=== PATIENT | male | born 1965 | race American Indian/Alaskan Native ===

== ENCOUNTER 2018-03-17 08:52 | Emergency (ER) | payer SELFPAY ==
[2018-03-17 09:00] VITALS: BP 135/82
[2018-03-17] MEDS ORDERED: PROVENTIL IH ONE (09:08)
[2018-03-17] MEDS ORDERED: ATROVENT IH ONE (09:08)
[2018-03-17] MEDS ORDERED: NACL 0.9% 1000 ML 1,000 ML IV ONE (09:09)
--- NOTE | 2018-03-17 09:11 | Emergency Department Report ---
Blank Doc - Documentation Documentation: Patient is a 53-year-old -[place]ian male with past history of asthma who is presenting with 2-3 days of increased wheezing. Patient states he ran out of his meds for his nebulizer treatment. Patient's had a cough with shortness of breath. Brief physical exam patient is diffuse wheeze in a lung casper. Patient is able to speak in full sentences with some mild difficulty. Patient will undergo neb treatment with IV fluids and Solu-Medrol and magnesium will be reassessed. Ll
[2018-03-17] MEDS ORDERED: MAGNESIUM SULFATE 1 GM in NACL 0.9% 50 ML IV NR (10:00)
[2018-03-17] MEDS ORDERED: XOPENEX IH ONE (10:09)
--- NOTE | 2018-03-17 10:11 | Emergency Department Report ---
ED Asthma HPI - General Chief Complaint: Adult Asthma Stated Complaint: SOB/ASTHMA Time Seen by Provider: 03/17/18 09:08 Source: patient Mode of arrival: Ambulatory Limitations: No Limitations - History of Present Illness Initial Comments: This is 53-year-old male patient here complaining the shortness of breath for a week with wheezing in and congested cough. He said he uses albuterol and Symbicort nebulizer without any relief. Denies any chest pain. Reports nasal congestion and drainage. Denies any nausea or vomiting. Patient is a history of asthma and is also diabetes that is diet controlled. Patient reports that he usually go to [facility] for primary care but he is here today to be evaluated. MD Complaint: "asthma attack", shortness of breath, wheezing Onset/Timin -: week(s) Asthma History: childhood onset Severity: similar to prior Context: recent URI Associated Symptoms: dry cough Treatments Prior to Arrival: inhaled bronchodilator, inhaled steroid - Related Data Current Asthma Therapy: inhaled bronchodilator, inhaled steroid Home Medications Medication Instructions Recorded Confirmed Last Taken ALBUTEROL Inhaler [Proair] 2 puff IH QID PRN 03/17/18 03/17/18 03/17/18 Budesonide/Formoterol Fumarate 2 inh INHALATION BID 03/17/18 03/17/18 03/17/18 [Symbicort 160-4.5 Mcg Inhaler] Previous Rx's Medication Instructions Recorded Last Taken Type ALBUTEROL NEB's [Proventil 0.083% 2.5 mg IH Q6H PRN #1 box 03/17/18 Unknown Rx NEBS] Amoxicillin/K Clav Tab [Augmentin 1 tab PO Q12HR 10 Days #20 tab 03/17/18 Unknown Rx 875 mg] Cetirizine HCl [ZyrTEC] 10 mg PO QDAY 14 Days #14 capsule 03/17/18 Unknown Rx Fluticasone [Flonase] 1 spray NS QDAY 14 Days #1 bottle 03/17/18 Unknown Rx methylPREDNISolone [Medrol Dose 4 mg PO QAM 6 Days #1 pack 03/17/18 Unknown Rx Adam] Allergies Allergy/AdvReac Type Severity Reaction Status Date / Time No Known Allergies Allergy Unverified 03/17/18 08:56 ED Review of Systems ROS: Stated complaint: SOB/ASTHMA Other details as noted in HPI Constitutional: denies: chills, fever Eyes: denies: eye discharge ENT: congestion. denies: ear pain, throat pain Respiratory: SOB with exertion. denies: cough, orthopnea, shortness of breath, SOB at rest, stridor, wheezing Cardiovascular: denies: chest pain, palpitations, edema, syncope Gastrointestinal: diarrhea. denies: abdominal pain, nausea, vomiting Musculoskeletal: denies: back pain, joint swelling, arthralgia Skin: denies: rash, lesions Neurological: denies: headache, weakness ED Past Medical Hx - Past Medical History Previous Medical History?: Yes Hx Diabetes: Yes (no meds) Hx Asthma: Yes - Surgical History Past Surgical History?: No - Family History Family history: hypertension - Social History Smoking Status: Never Smoker Substance Use Type: Prescribed - Medications Home Medications: Home Medications Medication Instructions Recorded Confirmed Last Taken Type ALBUTEROL Inhaler [Proair] 2 puff IH QID PRN 03/17/18 03/17/18 03/17/18 History ALBUTEROL NEB's [Proventil 0.083% 2.5 mg IH Q6H PRN #1 box 03/17/18 Unknown Rx NEBS] Amoxicillin/K Clav Tab [Augmentin 1 tab PO Q12HR 10 Days #20 tab 03/17/18 Unknown Rx 875 mg] Budesonide/Formoterol Fumarate 2 inh INHALATION BID 03/17/18 03/17/18 03/17/18 History [Symbicort 160-4.5 Mcg Inhaler] Cetirizine HCl [ZyrTEC] 10 mg PO QDAY 14 Days #14 capsule 03/17/18 Unknown Rx Fluticasone [Flonase] 1 spray NS QDAY 14 Days #1 bottle 03/17/18 Unknown Rx methylPREDNISolone [Medrol Dose 4 mg PO QAM 6 Days #1 pack 03/17/18 Unknown Rx Adam] ED Physical Exam - General Limitations: No Limitations General appearance: alert, in no apparent distress - Head Head exam: Present: atraumatic, normocephalic, normal inspection - Eye Eye exam: Present: normal appearance, PERRL, EOMI Pupils: Present: normal accommodation - ENT ENT exam: Present: normal exam, normal orophraynx, mucous membranes moist, normal external ear exam, other (bilateral nasal mucosa pale, boggy with clear drainage). Absent: TM's normal bilaterally (bilateral TM congested without any erythema) - Neck Neck exam: Present: normal inspection, tenderness, full ROM. Absent: lymphadenopathy - Respiratory Respiratory exam: Present: normal lung sounds bilaterally (scattered throughout lung casper), wheezes, other (dry cough). Absent: respiratory distress, rales, rhonchi, stridor, chest wall tenderness, accessory muscle use, decreased breath sounds, prolonged expiratory - Cardiovascular Cardiovascular Exam: Present: regular rate, normal rhythm, normal heart sounds. Absent: systolic murmur, diastolic murmur - GI/Abdominal GI/Abdominal exam: Present: soft, normal bowel sounds. Absent: distended, tenderness, guarding, rebound, rigid, organomegaly - Extremities Exam Extremities exam: Present: normal inspection, full ROM, normal capillary refill , other (no clubbing, cyanosis or edema. +2 pulses all extremities). Absent: tenderness, pedal edema, joint swelling, calf tenderness - Neurological Exam Neurological exam: Present: alert, oriented X3, normal gait - Psychiatric Psychiatric exam: Present: normal affect, normal mood - Skin Skin exam: Present: warm, dry, intact, normal color. Absent: rash ED Course Vital Signs 03/17/18 03/17/18 08:56 09:19 Temperature 98 F Pulse Rate 86 Pulse Rate [ 94 H Bilateral] Respiratory 22 Rate Respiratory 16 Rate [Bilateral ] Blood Pressure 135/82 O2 Sat by Pulse 97 Oximetry Vital Signs 03/17/18 03/17/18 03/17/18 08:56 09:19 09:49 Temperature 98 F Pulse Rate 86 Pulse Rate [ 94 H 92 H Bilateral] Respiratory 22 Rate Respiratory 16 16 Rate [Bilateral ] Blood Pressure 135/82 O2 Sat by Pulse 97 Oximetry 03/17/18 03/17/18 03/17/18 10:12 10:18 11:04 Temperature Pulse Rate 98 H 84 Pulse Rate [ 92 H Bilateral] Respiratory 19 18 Rate Respiratory 16 Rate [Bilateral ] Blood Pressure O2 Sat by Pulse 94 94 Oximetry 03/17/18 11:05 Temperature Pulse Rate 84 Pulse Rate [ Bilateral] Respiratory 18 Rate Respiratory Rate [Bilateral ] Blood Pressure O2 Sat by Pulse 98 Oximetry - Reevaluation(s) Reevaluation #1: 03/17/18 10:11 Patient given albuterol 10 mg, Ativan 1 mg nebulizer treatment, he still will wheeze and reports that he is not feeling better. Patient still has magnesium 2 g IV and normal saline 1 L infused in. His O2 sat is 94% on room air. Plan to give 1.25 mg of Xopenex and reevaluate after magnesium completed Reevaluation #2: 03/17/18 11:03 Patient reevaluated after Xopenex 2.5 mg nebulizer and he said he is feeling much better. He has scattered wheezes and upper lung casper. Vital signs are stable. ED Medical Decision Making - Medical Decision Making ED course: This is a 53-year-old male who is here for flareup of asthma. He is on Symbicort and albuterol which he said he used and it's not helping him. Similar symptoms of previous asthma attack. He reports cough, wheezing and some shortness of breath and exertion. He is not having any chest pain. Patient usually goes to [facility] for medical treatment. Patient states that he has an inhaler and he needs nebulizer medication and steroids. Patient was seen and examined by myself and found to have acute asthma exacerbation with upper respiratory tract infection with cough and congestion thus been ongoing for a week. He received albuterol 10 mg, Atrovent 1 mg, Solu- Medrol 125 mg IV, magnesium sulfate 2 g IV and 1 L of normal saline and upright reevaluation he still had some wheezing to his upper lung casper and said he felt a little better but not completely better or back to his normal feelings. I gave him additional Xopenex 2.5 mg nebulizer treatment and upon reevaluation patient lung sounds with minimal scattered wheezes in any city's feeling better. I discussed with him his diagnosis and treatment plan and he voiced understanding. A/P 1. Asthma exacerbation-patient is not better after Solu-Medrol, albuterol, Atrovent, magnesium sulfate, normal saline and Xopenex treatment. We will discharge home on albuterol nebulizer, steroids and he is continues albuterol and Symbicort. We will add Augmentin since he has been having symptoms for over a week. 2: Upper respiratory infection with cough and congestion-we'll discharge home in [facility] and Flonase Educated on medication, diagnosis, treatment plan and need to follow up with [facility] primary care for asthma. Patient voiced understanding and Patient discharged home in stable condition, vital signs are stable he is afebrile and he said he is feeling better. Discharged home a prescription for Medrol Dosepak, albuterol nebulizer, Augmentin ,Zyrtec and Flonase. - Differential Diagnosis bronchitis, asthma exacerbation, URI with cough and congestion Critical care attestation.: If time is entered above; I have spent that time in minutes in the direct care of this critically ill patient, excluding procedure time. ED Disposition Clinical Impression: URI with cough and congestion Acute asthma exacerbation Qualifiers: Asthma severity: moderate Asthma persistence: persistent Qualified Code(s): J45.41 - Moderate persistent asthma with (acute) exacerbation Disposition: TO HOME OR SELFCARE Is pt being admited?: No Does the pt Need Aspirin: No Condition: Stable Instructions: Asthma (ED), Upper Respiratory Infection (ED), Acute Cough (ED) Additional Instructions: Please take Zyrtec and Flonase for nasal congestion Take Augmentin antibiotic as prescribed Please return to emergency room if his symptoms return or worsens. If not, follow up at [facility] in 2-3 days Prescriptions: ALBUTEROL NEB's [Proventil 0.083% NEBS] 2.5 mg IH Q6H PRN #1 box PRN Reason: cough and wheezing Amoxicillin/K Clav Tab [Augmentin 875 mg] 1 tab PO Q12HR 10 Days #20 tab Cetirizine HCl [ZyrTEC] 10 mg PO QDAY 14 Days #14 capsule Fluticasone [Flonase] 1 spray NS QDAY 14 Days #1 bottle methylPREDNISolone [Medrol Dose Adam] 4 mg PO QAM 6 Days #1 pack Referrals: PRIMARY CARE, [Primary Care Provider] - 2-3 Days [facility] [Outside] - 2-3 Days
== END 2018-03-17 11:35 | disposition home or self-care (01) ==
LOC: ED 08:52
DX: J45.41 Moderate persistent asthma with (acute) exacerbation (principal); J06.9 Acute upper respiratory infection, unspecified; E11.9 Type 2 diabetes mellitus without complications
CPT/HCPCS: 94640; 96365; 96375; 99283; J2930; J3475; J7030; 94644

== ENCOUNTER 2018-12-29 12:22 | Emergency (ER) | payer OTHER ==
[2018-12-29] MEDS ORDERED: PROVENTIL IH ONE (13:11)
[2018-12-29] MEDS ORDERED: DELTASONE PO ONE (13:11)
[2018-12-29 13:12] VITALS: BP 129/79
--- NOTE | 2018-12-29 13:12 | Emergency Department Report ---
Chief Complaint: Dyspnea/Respdistress Stated Complaint: SOB Time Seen by Provider: 12/29/18 13:11 - HPI History of Present Illness: wheezing asthma ae rx inhaler mse completed MSE screening note: Focused history and physical exam performed. Due to findings the following was ordered: ED Disposition for MSE Condition: Stable
--- NOTE | 2018-12-29 14:11 | Emergency Department Report ---
Minor Respiratory - HPI Chief Complaint: Dyspnea/Respdistress Stated Complaint: SOB Time Seen by Provider: 12/29/18 13:11 Duration: 2 Days Pain Location: Chest Severity: mild Minor Respiratory: Yes Sore Throat, Yes Able to Tolerate Fluids, Yes Cough, Yes Shortness of Breath, No Rhinorrhea, No Ear Pain, No Sick Contacts, No Hemoptysis, No Chest Pain, No Fever Other History: 54 yo comes with wheezing and sob. He has asthma and has no meds at this time. no cp. no fever. pos sputum- yellow in color. ED Review of Systems ROS: Stated complaint: SOB Other details as noted in HPI Comment: All other systems reviewed and negative ED Past Medical Hx - Past Medical History Previous Medical History?: Yes Hx Diabetes: Yes (no meds) Hx Asthma: Yes - Surgical History Past Surgical History?: No - Social History Smoking Status: Never Smoker Substance Use Type: None - Medications Home Medications: Home Medications Medication Instructions Recorded Confirmed Last Taken Type Amoxicillin/K Clav Tab [Augmentin 1 tab PO Q12HR 10 Days #20 tab 03/17/18 Unknown Rx 875 mg] Cetirizine HCl [ZyrTEC] 10 mg PO QDAY 14 Days #14 capsule 03/17/18 Unknown Rx Fluticasone [Flonase] 1 spray NS QDAY 14 Days #1 bottle 03/17/18 Unknown Rx methylPREDNISolone [Medrol Dose 4 mg PO QAM 6 Days #1 pack 03/17/18 Unknown Rx Adam] Albuterol Sulfate [Ventolin HFA] 2 puff IH Q4H PRN #1 hfa.aer.ad 12/29/18 Unknown Rx Amoxicillin 500 mg PO BID #20 capsule 12/29/18 Unknown Rx Cetirizine HCl [ZyrTEC] 10 mg PO DAILY #30 capsule 12/29/18 Unknown Rx Fluticasone [Flonase] 1 spray NS QDAY #1 bottle 12/29/18 Unknown Rx predniSONE [Deltasone] 20 mg PO DAILY #5 tablet 12/29/18 Unknown Rx ALBUTEROL Inhaler (OR & NICU) 2 puff IH QID PRN #1 inha 01/04/19 Unknown Rx [ProAir HFA Inhaler] ALBUTEROL NEB's [Proventil 0.083% 2.5 mg IH Q6H PRN #1 box 01/04/19 Unknown Rx NEBS] Budesonide/Formoterol Fumarate 2 inh INHALATION BID #1 hfa.aer.ad 01/04/19 Unknown Rx [Symbicort 160-4.5 Mcg Inhaler] Prednisone [predniSONE 10 mg 10 mg PO .TAPER #1 tab.ds.pk 01/04/19 Unknown Rx (6-Day Pack, 21 Tabs)] Minor Respiratory Exam - Exam General: Vital signs noted. No distress. Alert and acting appropriately. HEENT: Yes Pharyngeal Erythema, Yes Moist Mucous Membranes, Yes Rhinorrhea, No Pharyngeal Exudates, No Conjuctival Injection, No Frontal Tenderness, No Maxillary Tenderness Ear: Neither TM Bulge, Neither TM Erythema, Neither EAC Pain, Neither EAC Discharge Neck: Yes Supple, No Adenopathy Lungs: Yes Good Air Exchange, Yes Wheezes, Yes Cough, No Ronchi, No Stridor, No Labored Respirations, No Retractions, No Use of Accessory Muscles, No Other Abnormal Lung Sounds Heart: Yes Regular, No Murmur Abdomen: Yes Normal Bowel Sounds, No Tenderness, No Peritoneal Signs Skin: No Rash, No Edema Neurologic: Alert and oriented, no deficits. Musculoskeletal: Unremarkable. ED Course Vital Signs 12/29/18 12/29/18 13:11 13:28 Temperature 98.1 F Pulse Rate 69 Pulse Rate [ 73 Bilateral] Respiratory 20 Rate Respiratory 16 Rate [Bilateral ] Blood Pressure 129/79 O2 Sat by Pulse 97 Oximetry ED Medical Decision Making - Medical Decision Making Vital Signs 12/29/18 12/29/18 13:11 13:28 Temperature 98.1 F Pulse Rate 69 Pulse Rate [ 73 Bilateral] Respiratory 20 Rate Respiratory 16 Rate [Bilateral ] Blood Pressure 129/79 O2 Sat by Pulse 97 Oximetry Medicated in ER and dc home with rx and follow up. VSS ambulatory taking po non toxic Critical care attestation.: If time is entered above; I have spent that time in minutes in the direct care of this critically ill patient, excluding procedure time. ED Disposition Clinical Impression: Asthma with acute exacerbation, URTI (acute upper respiratory infection) Disposition: DC-01 TO HOME OR SELFCARE Is pt being admited?: No Does the pt Need Aspirin: No Condition: Stable Instructions: Asthma (ED) Additional Instructions: REST HYDRATE WELL WITH WATER MEDS ORDERED FOLLOW UP PCP REFERRAL BELOW Prescriptions: Amoxicillin 500 mg PO BID #20 capsule predniSONE [Deltasone] 20 mg PO DAILY #5 tablet Fluticasone [Flonase] 1 spray NS QDAY #1 bottle Albuterol Sulfate [Ventolin HFA] 2 puff IH Q4H PRN #1 hfa.aer.ad PRN Reason: Shortness Of Breath Cetirizine HCl [ZyrTEC] 10 mg PO DAILY #30 capsule Referrals: [facility] [Outside] - 3-5 Days Time of Disposition: 14:30
== END 2018-12-29 14:20 | disposition home or self-care (01) ==
LOC: ED 12:22
DX: J45.901 Unspecified asthma with (acute) exacerbation (principal); J06.9 Acute upper respiratory infection, unspecified; E11.9 Type 2 diabetes mellitus without complications
CPT/HCPCS: 94640; 99282; J7512

== ENCOUNTER 2019-01-04 10:42 | Emergency (ER) | payer SELFPAY ==
[2019-01-04] MEDS ORDERED: DECADRON IM ONE (11:18)
[2019-01-04] MEDS ORDERED: PROVENTIL IH ONE ×2 (11:18→13:17)
[2019-01-04] MEDS ORDERED: ATROVENT IH ONE (11:18)
--- NOTE | 2019-01-04 11:18 | Emergency Department Report ---
Chief Complaint: Adult Asthma Stated Complaint: SOB/ASTHMA Time Seen by Provider: 01/04/19 11:16 - HPI History of Present Illness: pt with hx of asthma has SOB and wheezing states he only uses albuterol inhaler no cough no fever no sore throat no other PMHx MSE screening note: Focused history and physical exam performed. Due to findings the following was ordered: CXR, steroids, neb tx ED Disposition for MSE Condition: Stable
--- NOTE | 2019-01-04 11:52 | Emergency Department Report ---
HPI - General Chief Complaint: Adult Asthma Time Seen by Provider: 01/04/19 11:16 - HPI HPI: 53-year-old -[place] male presents to the emergency department with a 2 day history of some shortness of breath, wheezing. He has a history of asthma and has been using his albuterol inhaler and nebulizer at home without much relief. He denies any fever, significant cough, chest pain, nausea, vomiting or diaphoresis. He denies any tobacco use. No recent travel or sick contacts at home. He does not have a primary care physician. ED Past Medical Hx - Past Medical History Hx Diabetes: Yes (no meds) Hx Asthma: Yes - Surgical History Past Surgical History?: No - Social History Smoking Status: Never Smoker Substance Use Type: None - Medications Home Medications: Home Medications Medication Instructions Recorded Confirmed Last Taken Type Amoxicillin/K Clav Tab [Augmentin 1 tab PO Q12HR 10 Days #20 tab 03/17/18 Unknown Rx 875 mg] Cetirizine HCl [ZyrTEC] 10 mg PO QDAY 14 Days #14 capsule 03/17/18 Unknown Rx Fluticasone [Flonase] 1 spray NS QDAY 14 Days #1 bottle 03/17/18 Unknown Rx methylPREDNISolone [Medrol Dose 4 mg PO QAM 6 Days #1 pack 03/17/18 Unknown Rx Adam] Albuterol Sulfate [Ventolin HFA] 2 puff IH Q4H PRN #1 hfa.aer.ad 12/29/18 Unknown Rx Amoxicillin 500 mg PO BID #20 capsule 12/29/18 Unknown Rx Cetirizine HCl [ZyrTEC] 10 mg PO DAILY #30 capsule 12/29/18 Unknown Rx Fluticasone [Flonase] 1 spray NS QDAY #1 bottle 12/29/18 Unknown Rx predniSONE [Deltasone] 20 mg PO DAILY #5 tablet 12/29/18 Unknown Rx ALBUTEROL Inhaler (OR & NICU) 2 puff IH QID PRN #1 inha 01/04/19 Unknown Rx [ProAir HFA Inhaler] ALBUTEROL NEB's [Proventil 0.083% 2.5 mg IH Q6H PRN #1 box 01/04/19 Unknown Rx NEBS] Budesonide/Formoterol Fumarate 2 inh INHALATION BID #1 hfa.aer.ad 01/04/19 Unknown Rx [Symbicort 160-4.5 Mcg Inhaler] Prednisone [predniSONE 10 mg 10 mg PO .TAPER #1 tab.ds.pk 01/04/19 Unknown Rx (6-Day Pack, 21 Tabs)] ED Review of Systems ROS: Stated complaint: SOB/ASTHMA Other details as noted in HPI Comment: All other systems reviewed and negative Constitutional: denies: chills, fever Eyes: denies: eye pain, vision change ENT: denies: ear pain, throat pain Respiratory: shortness of breath, wheezing Cardiovascular: denies: chest pain, palpitations Gastrointestinal: denies: abdominal pain, vomiting Genitourinary: denies: dysuria, discharge Musculoskeletal: denies: back pain, arthralgia Skin: denies: rash, lesions Neurological: denies: headache, weakness Physical Exam - Physical Exam Vital Signs: Vital Signs 01/04/19 01/04/19 11:16 11:31 Temperature 97.8 F Pulse Rate 99 H Pulse Rate [ 87 Anterior Bilateral Throughout] Respiratory 18 Rate Respiratory 18 Rate [Anterior Bilateral Throughout] Blood Pressure 134/98 O2 Sat by Pulse 97 Oximetry Physical Exam: GENERAL: The patient is well-developed well-nourished. HENT: Normocephalic. Atraumatic. Patient has moist mucous membranes. EYES: Extraocular motions are intact. Pupils equal reactive to light bilaterally. NECK: Supple. Trachea is midline. CHEST/LUNGS: Moderate wheezing throughout the chest. Mild tachypnea but no accessory muscle use. There is no respiratory distress noted. HEART/CARDIOVASCULAR: Regular. There is no tachycardia. There is no murmur. ABDOMEN: Abdomen is soft, nontender. Patient has normal bowel sounds. There is no abdominal distention. SKIN: Skin is warm and dry. NEURO: The patient is awake, alert, and oriented. The patient is cooperative. The patient has no focal neurologic deficits. The patient has normal speech. MUSCULOSKELETAL: There is no tenderness or deformity. There is no evidence of acute injury. ED Course Vital Signs 01/04/19 01/04/19 11:16 11:31 Temperature 97.8 F Pulse Rate 99 H Pulse Rate [ 87 Anterior Bilateral Throughout] Respiratory 18 Rate Respiratory 18 Rate [Anterior Bilateral Throughout] Blood Pressure 134/98 O2 Sat by Pulse 97 Oximetry ED Medical Decision Making - Radiology Data Radiology results: image reviewed interpreted by me: Chest x-ray does not show any acute process. There are no pleural effusions, obvious pneumonia and there is no pneumothorax. - Medical Decision Making Patient presents to the emergency department with some wheezing and shortness of breath. Chest x-ray does not show any focal consolidation, pneumothorax, pneumonia, pleural effusions, or any other acute process. He has moderate bronchospasm but does not appear in any respiratory distress. He was given a dose of steroids and to different long breathing treatments. Upon reevaluation he is feeling improved. The patient was able to ambulate without any exertional dyspnea or increased work of breathing. Vital signs stable throughout his ED course included being afebrile. He says that he has good follow-up for primary care. He will be given a refill of his Symbicort, albuterol, and will be placed on a Medrol Dosepak. He will return to the ER with any worsening of his symptoms or any acute distress. - Differential Diagnosis asthma, COPD, pneumonia, CHF Critical Care Time: No Critical care attestation.: If time is entered above; I have spent that time in minutes in the direct care of this critically ill patient, excluding procedure time. ED Disposition Clinical Impression: Asthma with acute exacerbation Qualifiers: Asthma severity: unspecified severity Asthma persistence: unspecified Qualified Code(s): J45.901 - Unspecified asthma with (acute) exacerbation Disposition: DC-01 TO HOME OR SELFCARE Is pt being admited?: No Condition: Stable Instructions: Asthma (ED) Additional Instructions: Please follow-up with your primary care physician in the next few days. Return to the emergency Department with any worsening of your symptoms or any acute distress. Prescriptions: Prednisone [predniSONE 10 mg (6-Day Pack, 21 Tabs)] 10 mg PO .TAPER #1 tab.ds.pk ALBUTEROL Inhaler (OR & NICU) [ProAir HFA Inhaler] 2 puff IH QID PRN #1 inha PRN Reason: Shortness Of Breath ALBUTEROL NEB's [Proventil 0.083% NEBS] 2.5 mg IH Q6H PRN #1 box PRN Reason: cough and wheezing Budesonide/Formoterol Fumarate [Symbicort 160-4.5 Mcg Inhaler] 2 inh INHALATION BID #1 hfa.aer.ad Referrals: NGA BECKHAM MD [Primary Care Provider] - 3-5 Days Forms: Work/School Release Form(ED) Time of Disposition: 16:35
--- NOTE | 2019-01-04 12:10 | XRay Report ---
CHEST TWO VIEWS: 01/04/19 12:05 CLINICAL: Shortest of breath and wheezing. COMPARISON: 04/16/10 FINDINGS: Normal heart and pulmonary vasculature. The lungs are normally expanded and clear. The bones and soft tissues are normal. IMPRESSION: Normal chest.
[2019-01-04 15:08] VITALS: BP 141/84
== END 2019-01-04 15:07 | disposition home or self-care (01) ==
LOC: ED 10:42
DX: J45.901 Unspecified asthma with (acute) exacerbation (principal); E11.9 Type 2 diabetes mellitus without complications
CPT/HCPCS: 71046; 94640; 96372; 99283; J1100

== ENCOUNTER 2019-11-30 12:09 | Emergency (ER) | payer SELFPAY ==
[2019-11-30 12:21] VITALS: BP 154/92
[2019-11-30] MEDS ORDERED: IPRATROPIUM/ALBUTEROL SULFATE 3 ML AMPUL.NEB IH ONE (12:50)
[2019-11-30] MEDS ORDERED: predniSONE 20 MG TAB PO ONE (12:53)
--- NOTE | 2019-11-30 12:56 | Emergency Department Report ---
ED General Adult HPI - General Chief complaint: Upper Respiratory Infection Stated complaint: ASTHMA, CONGESTION Time Seen by Provider: 11/30/19 12:44 Source: patient Mode of arrival: Ambulatory Limitations: No Limitations - History of Present Illness Initial comments: 54 yo male states that he is experiencing chest congestion and SOB x 3 days. he further states that he has been using a KITA inhaler with no relief. Severity scale (0 -10): 0 - Related Data Previous Rx's Medication Instructions Recorded Last Taken Type Amoxicillin/K Clav Tab [Augmentin 1 tab PO Q12HR 10 Days #20 tab 03/17/18 Unknown Rx 875 mg] Cetirizine HCl [ZyrTEC] 10 mg PO QDAY 14 Days #14 capsule 03/17/18 Unknown Rx Fluticasone [Flonase] 1 spray NS QDAY 14 Days #1 bottle 03/17/18 Unknown Rx methylPREDNISolone [Medrol Dose 4 mg PO QAM 6 Days #1 pack 03/17/18 Unknown Rx Adam] Albuterol Sulfate [Ventolin HFA] 2 puff IH Q4H PRN #1 hfa.aer.ad 12/29/18 Unknown Rx Amoxicillin 500 mg PO BID #20 capsule 12/29/18 Unknown Rx Cetirizine HCl [ZyrTEC] 10 mg PO DAILY #30 capsule 12/29/18 Unknown Rx Fluticasone [Flonase] 1 spray NS QDAY #1 bottle 12/29/18 Unknown Rx predniSONE [Deltasone] 20 mg PO DAILY #5 tablet 12/29/18 Unknown Rx ALBUTEROL NEB's [Proventil 0.083% 2.5 mg IH Q6H PRN #1 box 01/04/19 Unknown Rx NEBS] Albuterol INH(or & Nicu Only) 2 puff IH QID PRN #1 inha 01/04/19 Unknown Rx [ProAir HFA Inhaler] Budesonide/Formoterol Fumarate 2 inh INHALATION BID #1 hfa.aer.ad 01/04/19 Unknown Rx [Symbicort 160-4.5 Mcg Inhaler] Prednisone [predniSONE 10 mg 10 mg PO .TAPER #1 tab.ds.pk 01/04/19 Unknown Rx (6-Day Pack, 21 Tabs)] Allergies Allergy/AdvReac Type Severity Reaction Status Date / Time No Known Allergies Allergy Verified 01/04/19 10:44 ED Review of Systems ROS: Stated complaint: ASTHMA, CONGESTION Other details as noted in HPI ED Past Medical Hx - Past Medical History Hx Diabetes: Yes (no meds) Hx Asthma: Yes - Surgical History Past Surgical History?: No - Social History Smoking Status: Never Smoker Substance Use Type: None - Medications Home Medications: Home Medications Medication Instructions Recorded Confirmed Last Taken Type Amoxicillin/K Clav Tab [Augmentin 1 tab PO Q12HR 10 Days #20 tab 03/17/18 Unknown Rx 875 mg] Cetirizine HCl [ZyrTEC] 10 mg PO QDAY 14 Days #14 capsule 03/17/18 Unknown Rx Fluticasone [Flonase] 1 spray NS QDAY 14 Days #1 bottle 03/17/18 Unknown Rx methylPREDNISolone [Medrol Dose 4 mg PO QAM 6 Days #1 pack 03/17/18 Unknown Rx Adam] Albuterol Sulfate [Ventolin HFA] 2 puff IH Q4H PRN #1 hfa.aer.ad 12/29/18 Unknown Rx Amoxicillin 500 mg PO BID #20 capsule 12/29/18 Unknown Rx Cetirizine HCl [ZyrTEC] 10 mg PO DAILY #30 capsule 12/29/18 Unknown Rx Fluticasone [Flonase] 1 spray NS QDAY #1 bottle 12/29/18 Unknown Rx predniSONE [Deltasone] 20 mg PO DAILY #5 tablet 12/29/18 Unknown Rx ALBUTEROL NEB's [Proventil 0.083% 2.5 mg IH Q6H PRN #1 box 01/04/19 Unknown Rx NEBS] Albuterol INH(or & Nicu Only) 2 puff IH QID PRN #1 inha 01/04/19 Unknown Rx [ProAir HFA Inhaler] Budesonide/Formoterol Fumarate 2 inh INHALATION BID #1 hfa.aer.ad 01/04/19 Unknown Rx [Symbicort 160-4.5 Mcg Inhaler] Prednisone [predniSONE 10 mg 10 mg PO .TAPER #1 tab.ds.pk 01/04/19 Unknown Rx (6-Day Pack, 21 Tabs)] ED Physical Exam - General Limitations: No Limitations ED Course Vital Signs 11/30/19 12:20 Temperature 98.2 F Pulse Rate 75 Respiratory 16 Rate Blood Pressure 154/92 [Left] O2 Sat by Pulse 99 Oximetry Critical care attestation.: If time is entered above; I have spent that time in minutes in the direct care of this critically ill patient, excluding procedure time. ED Disposition Condition: Stable
[2019-11-30] MEDS ORDERED: predniSONE 20 MG TAB PO STA (13:11)
--- NOTE | 2019-11-30 13:20 | Emergency Department Report ---
ED Asthma HPI - General Chief Complaint: Upper Respiratory Infection Stated Complaint: ASTHMA, CONGESTION Time Seen by Provider: 11/30/19 12:44 Source: patient Mode of arrival: Ambulatory Limitations: No Limitations - History of Present Illness Initial Comments: 54-year-old [place] male presents emerge department planing of a 2-day history of progressively worsening wheezing coughing with mucus production. He said he has a known history of asthma and has been utilizing his home medications with no improvement. Reports some vague chest aches off and on reports no hemoptysis no hematemesis no hematochezia. Reports no fever, chills, sweats no nausea or vomiting. States that he has had no no tinnitus no headache no documented fever. He has been taking his medications as prescribed with minimal response. MD Complaint: shortness of breath, wheezing -: Sudden, days(s) (2) Severity: mild, moderate Associated Symptoms: none Treatments Prior to Arrival: inhaled bronchodilator - Related Data Previous Rx's Medication Instructions Recorded Last Taken Type Amoxicillin/K Clav Tab [Augmentin 1 tab PO Q12HR 10 Days #20 tab 03/17/18 Unknown Rx 875 mg] Cetirizine HCl [ZyrTEC] 10 mg PO QDAY 14 Days #14 capsule 03/17/18 Unknown Rx Fluticasone [Flonase] 1 spray NS QDAY 14 Days #1 bottle 03/17/18 Unknown Rx methylPREDNISolone [Medrol Dose 4 mg PO QAM 6 Days #1 pack 03/17/18 Unknown Rx Adam] Albuterol Sulfate [Ventolin HFA] 2 puff IH Q4H PRN #1 hfa.aer.ad 12/29/18 Unknown Rx Amoxicillin 500 mg PO BID #20 capsule 12/29/18 Unknown Rx Cetirizine HCl [ZyrTEC] 10 mg PO DAILY #30 capsule 12/29/18 Unknown Rx Fluticasone [Flonase] 1 spray NS QDAY #1 bottle 12/29/18 Unknown Rx predniSONE [Deltasone] 20 mg PO DAILY #5 tablet 12/29/18 Unknown Rx ALBUTEROL NEB's [Proventil 0.083% 2.5 mg IH Q6H PRN #1 box 01/04/19 Unknown Rx NEBS] Albuterol INH(or & Nicu Only) 2 puff IH QID PRN #1 inha 01/04/19 Unknown Rx [ProAir HFA Inhaler] Budesonide/Formoterol Fumarate 2 inh INHALATION BID #1 hfa.aer.ad 01/04/19 Unknown Rx [Symbicort 160-4.5 Mcg Inhaler] Prednisone [predniSONE 10 mg 10 mg PO .TAPER #1 tab.ds.pk 01/04/19 Unknown Rx (6-Day Pack, 21 Tabs)] Montelukast [Singulair] 10 mg PO QPM #14 tablet 11/30/19 Unknown Rx predniSONE [Deltasone] 50 mg PO QDAY #5 tab 11/30/19 Unknown Rx Allergies Allergy/AdvReac Type Severity Reaction Status Date / Time No Known Allergies Allergy Verified 01/04/19 10:44 ED Review of Systems ROS: Stated complaint: ASTHMA, CONGESTION Other details as noted in HPI Comment: All other systems reviewed and negative ED Past Medical Hx - Past Medical History Hx Diabetes: Yes (no meds) Hx Asthma: Yes - Surgical History Past Surgical History?: No - Social History Smoking Status: Never Smoker Substance Use Type: None - Medications Home Medications: Home Medications Medication Instructions Recorded Confirmed Last Taken Type Amoxicillin/K Clav Tab [Augmentin 1 tab PO Q12HR 10 Days #20 tab 03/17/18 Unknown Rx 875 mg] Cetirizine HCl [ZyrTEC] 10 mg PO QDAY 14 Days #14 capsule 03/17/18 Unknown Rx Fluticasone [Flonase] 1 spray NS QDAY 14 Days #1 bottle 03/17/18 Unknown Rx methylPREDNISolone [Medrol Dose 4 mg PO QAM 6 Days #1 pack 03/17/18 Unknown Rx Adam] Albuterol Sulfate [Ventolin HFA] 2 puff IH Q4H PRN #1 hfa.aer.ad 12/29/18 Unknown Rx Amoxicillin 500 mg PO BID #20 capsule 12/29/18 Unknown Rx Cetirizine HCl [ZyrTEC] 10 mg PO DAILY #30 capsule 12/29/18 Unknown Rx Fluticasone [Flonase] 1 spray NS QDAY #1 bottle 12/29/18 Unknown Rx predniSONE [Deltasone] 20 mg PO DAILY #5 tablet 12/29/18 Unknown Rx ALBUTEROL NEB's [Proventil 0.083% 2.5 mg IH Q6H PRN #1 box 04/29/19 Unknown Rx NEBS] Albuterol INH(or & Nicu Only) 2 puff IH QID PRN #1 inha 01/04/19 Unknown Rx [ProAir HFA Inhaler] Budesonide/Formoterol Fumarate 2 inh INHALATION BID #1 hfa.aer.ad 01/04/19 Unknown Rx [Symbicort 160-4.5 Mcg Inhaler] Prednisone [predniSONE 10 mg 10 mg PO .TAPER #1 tab.ds.pk 01/04/19 Unknown Rx (6-Day Pack, 21 Tabs)] Montelukast [Singulair] 10 mg PO QPM #14 tablet 11/30/19 Unknown Rx predniSONE [Deltasone] 50 mg PO QDAY #5 tab 11/30/19 Unknown Rx ED Physical Exam - General Limitations: No Limitations General appearance: alert, in no apparent distress - Head Head exam: Present: atraumatic, normocephalic - Eye Eye exam: Present: normal appearance - ENT ENT exam: Present: mucous membranes moist - Neck Neck exam: Present: normal inspection - Respiratory Respiratory exam: Present: normal lung sounds bilaterally, wheezes, other (Good air movement there is some end expiratory wheezing appears to be equal). Absent: respiratory distress, rales, rhonchi, decreased breath sounds, prolonged expiratory - Cardiovascular Cardiovascular Exam: Present: regular rate, normal rhythm. Absent: systolic murmur, diastolic murmur, rubs, gallop - GI/Abdominal GI/Abdominal exam: Present: soft, normal bowel sounds - Rectal Rectal exam: Present: deferred - Extremities Exam Extremities exam: Present: normal inspection - Back Exam Back exam: Present: normal inspection - Neurological Exam Neurological exam: Present: alert, oriented X3 - Psychiatric Psychiatric exam: Present: normal affect, normal mood - Skin Skin exam: Present: warm, dry, intact, normal color. Absent: rash ED Course Vital Signs 11/30/19 12:20 Temperature 98.2 F Pulse Rate 75 Respiratory 16 Rate Blood Pressure 154/92 [Left] O2 Sat by Pulse 99 Oximetry ED Medical Decision Making - Medical Decision Making This patient presents with acute cough, most consistent with asthma exacerbation. Differential diagnosis includes hyperreactive airways, pneumonia, bronchitis. Presentation not consistent with acute bacterial pneumonia, influenza, asthma, transient airway hyperresponsiveness. Presentation not consistent with chronic causes of cough (including GERD, asthma, postnasal disch arge, medication side effect, CHF, lung cancer or mass). Plan: Deferred CXR, supportive care, reassess Critical care attestation.: If time is entered above; I have spent that time in minutes in the direct care of this critically ill patient, excluding procedure time. ED Disposition Clinical Impression: Asthma Disposition: DC-01 TO HOME OR SELFCARE Is pt being admited?: No Does the pt Need Aspirin: No Condition: Stable Instructions: Asthma (ED), Reactive Airways Disease (ED) Referrals: PRIMARY CARE, [Primary Care Provider] - 3-5 Days [facility] [Provider Group] - 3-5 Days
--- NOTE | 2019-11-30 16:35 | Event Note ---
ED Screening Note Date of service: 11/30/19 Time: 12:44 ED Screening Note: This initial assessment/diagnostic orders/clinical plan/treatment(s) is/are subject to change based on patients health status, clinical progression and re- assessment by fellow clinical providers in the ED. Further treatment and workup at subsequent clinical providers discretion. Patient/guardian urged not to elope from the ED as their condition may be serious if not clinically assessed and managed. Initial orders include: 54 yo male states that he is experiencing chest congestion and SOB x 3 days. he further states that he has been using a KITA inhaler with no relief.
== END 2019-11-30 13:57 | disposition home or self-care (01) ==
LOC: ED 12:09
DX: J45.909 Unspecified asthma, uncomplicated (principal); E11.9 Type 2 diabetes mellitus without complications; Z79.899 Other long term (current) drug therapy
CPT/HCPCS: 94640; 99282; J7512; 94644

== ENCOUNTER 2020-03-03 19:28 | Emergency (ER) | payer SELFPAY ==
[2020-03-03 19:35] VITALS: BP 132/94
[2020-03-03] MEDS ORDERED: IPRATROPIUM 0.02% NEBU 2.5 ML IH ONE (19:49)
[2020-03-03] MEDS ORDERED: dexAMETHasone 20 MG/5 ML VIAL IM ONE (19:49)
[2020-03-03] MEDS ORDERED: ALBUTEROL 2.5 MG/3 ML NEBU IH ONE (19:49)
--- NOTE | 2020-03-03 19:55 | Event Note ---
ED Screening Note Date of service: 03/03/20 Time: 19:47 ED Screening Note: 55 y/o male comes in for sob, coughing and little chest tightness time few days. Using his inhaler pump with no relief. This initial assessment/diagnostic orders/clinical plan/treatment(s) is/are subject to change based on patients health status, clinical progression and re- assessment by fellow clinical providers in the ED. Further treatment and workup at subsequent clinical providers discretion. Patient/guardian urged not to elope from the ED as their condition may be serious if not clinically assessed and managed. Initial orders include:
--- NOTE | 2020-03-03 20:22 | Emergency Department Report ---
ED Asthma HPI - General Chief Complaint: Adult Asthma Stated Complaint: ASTHMA Time Seen by Provider: 03/03/20 20:21 Source: patient Mode of arrival: Ambulatory Limitations: No Limitations - History of Present Illness Initial Comments: 55-year male with a past medical history of asthma and diabetes without previous history of intubations presents to the hospital stating he needs prednisone and a breathing treatment. He has had shortness of breath and wheezing for the past 2 days. Dry cough without fever. Using neb treatments at home without impro vement. Denies coronavirus exposure - Related Data Previous Rx's Medication Instructions Recorded Last Taken Type Amoxicillin/K Clav Tab [Augmentin 1 tab PO Q12HR 10 Days #20 tab 03/17/18 Unknown Rx 875 mg] Cetirizine HCl [ZyrTEC] 10 mg PO QDAY 14 Days #14 capsule 03/17/18 Unknown Rx Fluticasone [Flonase] 1 spray NS QDAY 14 Days #1 bottle 03/17/18 Unknown Rx methylPREDNISolone [Medrol Dose 4 mg PO QAM 6 Days #1 pack 03/17/18 Unknown Rx Adam] Albuterol Sulfate [Ventolin HFA] 2 puff IH Q4H PRN #1 hfa.aer.ad 12/29/18 Unknown Rx Amoxicillin 500 mg PO BID #20 capsule 12/29/18 Unknown Rx Cetirizine HCl [ZyrTEC] 10 mg PO DAILY #30 capsule 12/29/18 Unknown Rx Fluticasone [Flonase] 1 spray NS QDAY #1 bottle 12/29/18 Unknown Rx predniSONE [Deltasone] 20 mg PO DAILY #5 tablet 12/29/18 Unknown Rx Budesonide/Formoterol Fumarate 2 inh INHALATION BID #1 hfa.aer.ad 01/04/19 Unknown Rx [Symbicort 160-4.5 Mcg Inhaler] Montelukast [Singulair] 10 mg PO QPM #14 tablet 11/30/19 Unknown Rx predniSONE [Deltasone] 50 mg PO QDAY #5 tab 11/30/19 Unknown Rx ALBUTEROL NEB's [Proventil 0.083% 2.5 mg IH Q6H PRN #1 box 03/03/20 Unknown Rx NEBS] Albuterol INH(or & Nicu Only) 2 puff IH QID PRN #1 inha 03/03/20 Unknown Rx [ProAir HFA Inhaler] Prednisone [predniSONE 10 mg 10 mg PO .TAPER #1 tab.ds.pk 03/03/20 Unknown Rx (6-Day Pack, 21 Tabs)] Allergies Allergy/AdvReac Type Severity Reaction Status Date / Time No Known Allergies Allergy Verified 01/04/19 10:44 ED Review of Systems ROS: Stated complaint: ASTHMA Other details as noted in HPI Comment: All other systems reviewed and negative ED Past Medical Hx - Past Medical History Previous Medical History?: Yes Hx Diabetes: Yes (no meds) Hx Asthma: Yes - Surgical History Past Surgical History?: No - Social History Smoking Status: Former Smoker Substance Use Type: None - Medications Home Medications: Home Medications Medication Instructions Recorded Confirmed Last Taken Type Amoxicillin/K Clav Tab [Augmentin 1 tab PO Q12HR 10 Days #20 tab 03/17/18 Unknown Rx 875 mg] Cetirizine HCl [ZyrTEC] 10 mg PO QDAY 14 Days #14 capsule 03/17/18 Unknown Rx Fluticasone [Flonase] 1 spray NS QDAY 14 Days #1 bottle 03/17/18 Unknown Rx methylPREDNISolone [Medrol Dose 4 mg PO QAM 6 Days #1 pack 03/17/18 Unknown Rx Adam] Albuterol Sulfate [Ventolin HFA] 2 puff IH Q4H PRN #1 hfa.aer.ad 12/29/18 Unknown Rx Amoxicillin 500 mg PO BID #20 capsule 12/29/18 Unknown Rx Cetirizine HCl [ZyrTEC] 10 mg PO DAILY #30 capsule 12/29/18 Unknown Rx Fluticasone [Flonase] 1 spray NS QDAY #1 bottle 12/29/18 Unknown Rx predniSONE [Deltasone] 20 mg PO DAILY #5 tablet 12/29/18 Unknown Rx Budesonide/Formoterol Fumarate 2 inh INHALATION BID #1 hfa.aer.ad 01/04/19 Un known Rx [Symbicort 160-4.5 Mcg Inhaler] Montelukast [Singulair] 10 mg PO QPM #14 tablet 11/30/19 Unknown Rx predniSONE [Deltasone] 50 mg PO QDAY #5 tab 11/30/19 Unknown Rx ALBUTEROL NEB's [Proventil 0.083% 2.5 mg IH Q6H PRN #1 box 03/03/20 Unknown Rx NEBS] Albuterol INH(or & Nicu Only) 2 puff IH QID PRN #1 inha 03/03/20 Unknown Rx [ProAir HFA Inhaler] Prednisone [predniSONE 10 mg 10 mg PO .TAPER #1 tab.ds.pk 03/03/20 Unknown Rx (6-Day Pack, 21 Tabs)] ED Physical Exam - General Limitations: No Limitations - Other Other exam information: General: No acute distress Head: Atraumatic Eyes: normal appearance ENT: Moist mucous membranes Neck: Normal appearance, no midline tenderness Chest: Mild bilateral wheezing without respiratory distress CV: Regular rate and rhythm Abdomen: Soft, normal bowel sounds, nontender, nondistended, no rebound or gu arding Back: Normal inspection Extremity: Normal inspection, full range of motion Neuro: Alert O x 3, no facial asymmetry, speech clear, no gross motor sensory deficit Psych: Appropriate behavior Skin: No rash ED Course Vital Signs 03/03/20 03/03/20 19:34 20:44 Temperature 97.9 F Pulse Rate 72 Pulse Rate [ 70 Bilateral] Respiratory 20 Rate Respiratory 20 Rate [Bilateral ] Blood Pressure 132/94 O2 Sat by Pulse 98 Oximetry - Reevaluation(s) Reevaluation #1: 03/03/20 21:11 Patient states he feels little better. Still with mild wheezing. No respiratory distress. Does not want additional treatments prefers his prescriptions for home. ED Medical Decision Making - Medical Decision Making Patient treated with nebs and IM Decadron with improvement in symptoms Critical Care Time: No Critical care attestation.: If time is entered above; I have spent that time in minutes in the direct care of this critically ill patient, excluding procedure time. ED Disposition Clinical Impression: Acute asthma exacerbation Disposition: DC-01 TO HOME OR SELFCARE Is pt being admited?: No Does the pt Need Aspirin: No Condition: Stable Instructions: Asthma (ED) Additional Instructions: Take the medication as prescribed. Follow-up with your doctor or doctor/clinic provided. Return if symptoms worsen as indicated by your discharge instructions. Prescriptions: Prednisone [predniSONE 10 mg (6-Day Pack, 21 Tabs)] 10 mg PO .TAPER #1 tab.ds.pk Albuterol INH(or & Nicu Only) [ProAir HFA Inhaler] 2 puff IH QID PRN #1 inha PRN Reason: Shortness Of Breath ALBUTEROL NEB's [Proventil 0.083% NEBS] 2.5 mg IH Q6H PRN #1 box PRN Reason: cough and wheezing Referrals: CARINA CORONA MD [Staff Physician] - 3-5 Days PRIMARY CARE, [Primary Care Provider] - 3-5 Days [facility] [Provider Group] - 3-5 Days Time of Disposition: 21:11
== END 2020-03-03 21:30 | disposition home or self-care (01) ==
LOC: ED 19:28
DX: J45.901 Unspecified asthma with (acute) exacerbation (principal); I10 Essential (primary) hypertension; Z87.891 Personal history of nicotine dependence; Z79.899 Other long term (current) drug therapy
CPT/HCPCS: 94644; 96372; 99282; J1100; 94640

== ENCOUNTER 2020-07-28 09:31 | Emergency (ER) | payer SELFPAY ==
[2020-07-28 09:38] VITALS: BP 144/102
[2020-07-28] MEDS ORDERED: IPRATROPIUM 0.02% NEBU 2.5 ML IH ONE ×2 (09:52→09:56)
[2020-07-28] MEDS ORDERED: ALBUTEROL 2.5 MG/3 ML NEBU IH ONE ×2 (09:52→09:55)
--- NOTE | 2020-07-28 10:40 | Emergency Department Report ---
ED General Adult HPI - General Chief complaint: Adult Asthma Stated complaint: ASTHMA Time Seen by Provider: 07/28/20 10:03 Source: patient Mode of arrival: Ambulatory Limitations: No Limitations - History of Present Illness Initial comments: 55-year-old -[place] male patient with history of diabetes and asthma presents for shortness of breath x2 days. Patient states this feels like his normal asthma exacerbation and states his albuterol inhaler and nebulizer at home were not working. He denies any cough, hemoptysis, orthopnea, chest pain, leg pain/swelling, fever/chills/sweats, or recent known sick contacts. Shortness of breath worsens with exertion per patient. He reports his diabetes is well controlled and he is compliant with his diabetic medications. Severity scale (0 -10): 0 - Related Data Previous Rx's Medication Instructions Recorded Last Taken Type Amoxicillin/K Clav Tab [Augmentin 1 tab PO Q12HR 10 Days #20 tab 03/17/18 Unknown Rx 875 mg] Cetirizine HCl [ZyrTEC] 10 mg PO QDAY 14 Days #14 capsule 03/17/18 Unknown Rx Fluticasone [Flonase] 1 spray NS QDAY 14 Days #1 bottle 03/17/18 Unknown Rx methylPREDNISolone [Medrol Dose 4 mg PO QAM 6 Days #1 pack 03/17/18 Unknown Rx Adam] Albuterol Sulfate [Ventolin HFA] 2 puff IH Q4H PRN #1 hfa.aer.ad 12/29/18 Unknown Rx Amoxicillin 500 mg PO BID #20 capsule 12/29/18 Unknown Rx Cetirizine HCl [ZyrTEC] 10 mg PO DAILY #30 capsule 12/29/18 Unknown Rx Fluticasone [Flonase] 1 spray NS QDAY #1 bottle 12/29/18 Unknown Rx predniSONE [Deltasone] 20 mg PO DAILY #5 tablet 12/29/18 Unknown Rx Budesonide/Formoterol Fumarate 2 inh INHALATION BID #1 hfa.aer.ad 01/04/19 Unknown Rx [Symbicort 160-4.5 Mcg Inhaler] Montelukast [Singulair] 10 mg PO QPM #14 tablet 11/30/19 Unknown Rx predniSONE [Deltasone] 50 mg PO QDAY #5 tab 11/30/19 Unknown Rx ALBUTEROL NEB's [Proventil 0.083% 2.5 mg IH Q6H PRN #1 box 03/03/20 Unknown Rx NEBS] Albuterol Mdi (or & Nicu Only) 2 puff IH QID PRN #1 inha 03/03/20 Unknown Rx [ProAir HFA Inhaler] Prednisone [predniSONE 10 mg 10 mg PO .TAPER #1 tab.ds.pk 03/03/20 Unknown Rx (6-Day Pack, 21 Tabs)] Prednisone [predniSONE 10 mg 10 mg PO .TAPER #1 tab.ds.pk 07/28/20 Unknown Rx (6-Day Pack, 21 Tabs)] Allergies Allergy/AdvReac Type Severity Reaction Status Date / Time No Known Allergies Allergy Verified 07/28/20 09:32 ED Review of Systems ROS: Stated complaint: ASTHMA Other details as noted in HPI Constitutional: denies: chills, diaphoresis, fever, malaise, weakness ENT: denies: throat pain Respiratory: shortness of breath. denies: cough, orthopnea Cardiovascular: denies: chest pain Endocrine: denies: excessive sweating Gastrointestinal: denies: abdominal pain, nausea, vomiting, diarrhea Musculoskeletal: denies: back pain Skin: denies: change in color Neurological: denies: headache ED Past Medical Hx - Past Medical History Hx Diabetes: Yes (no meds) Hx Asthma: Yes - Social History Smoking Status: Never Smoker Substance Use Type: None - Medications Home Medications: Home Medications Medication Instructions Recorded Confirmed Last Taken Type Amoxicillin/K Clav Tab [Augmentin 1 tab PO Q12HR 10 Days #20 tab 03/17/18 Unknown Rx 875 mg] Cetirizine HCl [ZyrTEC] 10 mg PO QDAY 14 Days #14 capsule 03/17/18 Unknown Rx Fluticasone [Flonase] 1 spray NS QDAY 14 Days #1 bottle 03/17/18 Unknown Rx methylPREDNISolone [Medrol Dose 4 mg PO QAM 6 Days #1 pack 03/17/18 Unknown Rx Adam] Albuterol Sulfate [Ventolin HFA] 2 puff IH Q4H PRN #1 hfa.aer.ad 12/29/18 Unknown Rx Amoxicillin 500 mg PO BID #20 capsule 12/29/18 Unknown Rx Cetirizine HCl [ZyrTEC] 10 mg PO DAILY #30 capsule 04/23/19 Unknown Rx Fluticasone [Flonase] 1 spray NS QDAY #1 bottle 12/29/18 Unknown Rx predniSONE [Deltasone] 20 mg PO DAILY #5 tablet 12/29/18 Unknown Rx Budesonide/Formoterol Fumarate 2 inh INHALATION BID #1 hfa.aer.ad 01/04/19 Unknown Rx [Symbicort 160-4.5 Mcg Inhaler] Montelukast [Singulair] 10 mg PO QPM #14 tablet 11/30/19 Unknown Rx predniSONE [Deltasone] 50 mg PO QDAY #5 tab 11/30/19 Unknown Rx ALBUTEROL NEB's [Proventil 0.083% 2.5 mg IH Q6H PRN #1 box 03/03/20 Unknown Rx NEBS] Albuterol Mdi (or & Nicu Only) 2 puff IH QID PRN #1 inha 03/03/20 Unknown Rx [ProAir HFA Inhaler] Prednisone [predniSONE 10 mg 10 mg PO .TAPER #1 tab.ds.pk 03/03/20 Unknown Rx (6-Day Pack, 21 Tabs)] Prednisone [predniSONE 10 mg 10 mg PO .TAPER #1 tab.ds.pk 07/28/20 Unknown Rx (6-Day Pack, 21 Tabs)] ED Physical Exam - General Limitations: No Limitations General appearance: alert, in no apparent distress - Head Head exam: Present: atraumatic, normocephalic - Eye Eye exam: Present: normal appearance - ENT ENT exam: Present: mucous membranes moist - Neck Neck exam: Present: normal inspection - Respiratory Respiratory exam: Present: wheezes (Diffuse). Absent: respiratory distress, rales, rhonchi, stridor, chest wall tenderness - Cardiovascular Cardiovascular Exam: Present: regular rate, normal rhythm. Absent: systolic murmur, diastolic murmur, rubs, gallop - GI/Abdominal GI/Abdominal exam: Present: soft. Absent: tenderness - Extremities Exam Extremities exam: Absent: calf tenderness (No swelling or tenderness noted to legs bilaterally) - Back Exam Back exam: Present: normal inspection - Neurological Exam Neurological exam: Present: alert, oriented X3, normal gait - Psychiatric Psychiatric exam: Present: normal affect, normal mood - Skin Skin exam: Present: warm, dry, intact, normal color. Absent: rash, cyanosis, diaphoretic, petechiae, ecchymosis ED Course Vital Signs 07/28/20 09:36 Temperature 97.7 F Pulse Rate 74 Respiratory 22 Rate Blood Pressure 144/102 [Right] O2 Sat by Pulse 97 Oximetry ED Medical Decision Making - Medical Decision Making 55-year-old -[place] male patient with history of diabetes and asthma presents for shortness of breath x2 days. Patient states this feels like his normal asthma exacerbation and states his albuterol inhaler and nebulizer at home were not working. He denies any cough, hemoptysis, orthopnea, chest pain, leg pain/swelling, fever/chills/sweats, or recent known sick contacts. Shortness of breath worsens with exertion per patient. He reports his diabetes is well controlled and he is compliant with his diabetic medications. Diffuse wheezing noted bilaterally lungs on exam without rhonchi or rails. Patient declines continuous DuoNeb treatment and states he would just like a prescription for steroids. His vitals are normal he is well-appearing. Prescription for Dosepak given. Discussed importance of close monitoring of glucose levels while taking steroids given patient is diabetic. POC glucose today = 100. Patient to follow-up with his PCP in 3 days. Strict return precautions were discussed in detail with patient who verbalized understanding. Critical care attestation.: If time is entered above; I have spent that time in minutes in the direct care of this critically ill patient, excluding procedure time. ED Disposition Clinical Impression: Asthma exacerbation Qualifiers: Asthma severity: mild Asthma persistence: intermittent Qualified Code(s): J45.21 - Mild intermittent asthma with (acute) exacerbation Disposition: - TO HOME OR SELFCARE Is pt being admited?: No Condition: Stable Instructions: Asthma, Adult Prescriptions: Prednisone [predniSONE 10 mg (6-Day Pack, 21 Tabs)] 10 mg PO .TAPER #1 tab.ds.pk Referrals: [facility] [Provider Group] - 3-5 Days
[2020-07-28] MEDS ORDERED: predniSONE 20 MG TAB PO ONE (10:41)
== END 2020-07-28 10:40 | disposition home or self-care (01) ==
LOC: ED 09:31
DX: J45.901 Unspecified asthma with (acute) exacerbation (principal); E11.9 Type 2 diabetes mellitus without complications; Z79.899 Other long term (current) drug therapy
CPT/HCPCS: 82962; 94640; 99283; J7512

== ENCOUNTER 2020-08-06 08:26 | Emergency (ER) | payer SELFPAY ==
[2020-08-06] MEDS ORDERED: IPRATROPIUM/ALBUTEROL SULFATE 3 ML AMPUL.NEB IH ONE ×2 (08:34→08:56)
[2020-08-06] MEDS ORDERED: ASPIRIN 325 MG TAB PO ONE (08:52)
[2020-08-06] MEDS ORDERED: IPRATROPIUM 0.02% NEBU 2.5 ML IH ONE (09:11)
[2020-08-06] MEDS ORDERED: ALBUTEROL 2.5 MG/3 ML NEBU IH ONE (09:11)
--- NOTE | 2020-08-06 10:17 | Emergency Department Report ---
ED Asthma HPI - General Chief Complaint: Adult Asthma Stated Complaint: ASTHMA Time Seen by Provider: 08/06/20 09:09 Source: patient Mode of arrival: Ambulatory Limitations: No Limitations - History of Present Illness Initial Comments: This is a 55-year-old male nontoxic, well nourished in appearance, no acute signs of distress presents to the ED with c/o of acute on chronic asthma exacerbation. Patient denies any cough. Patient denies any sick contact. Patient denies any recent travels, long car, recent hospital stays. Patient denies any calf pain or calf tenderness. Patient denies any chest pain, short of breath, fever, chills, nausea, vomiting, hemoptysis, numbness, tingling, headache or stiff neck. Past medical history includes asthma. MD Complaint: "asthma attack", shortness of breath, wheezing -: days(s) Asthma History: childhood onset Severity: mild Context: none known Associated Symptoms: none - Related Data Current Asthma Therapy: inhaled bronchodilator Previous Rx's Medication Instructions Recorded Last Taken Type Amoxicillin/K Clav Tab [Augmentin 1 tab PO Q12HR 10 Days #20 tab 03/17/18 Unknown Rx 875 mg] Cetirizine HCl [ZyrTEC] 10 mg PO QDAY 14 Days #14 capsule 03/17/18 Unknown Rx Fluticasone [Flonase] 1 spray NS QDAY 14 Days #1 bottle 03/17/18 Unknown Rx methylPREDNISolone [Medrol Dose 4 mg PO QAM 6 Days #1 pack 03/17/18 Unknown Rx Adam] Albuterol Sulfate [Ventolin HFA] 2 puff IH Q4H PRN #1 hfa.aer.ad 12/29/18 Unknown Rx Amoxicillin 500 mg PO BID #20 capsule 12/29/18 Unknown Rx Cetirizine HCl [ZyrTEC] 10 mg PO DAILY #30 capsule 12/29/18 Unknown Rx Fluticasone [Flonase] 1 spray NS QDAY #1 bottle 12/29/18 Unknown Rx predniSONE [Deltasone] 20 mg PO DAILY #5 tablet 12/29/18 Unknown Rx Budesonide/Formoterol Fumarate 2 inh INHALATION BID #1 hfa.aer.ad 01/04/19 Unknown Rx [Symbicort 160-4.5 Mcg Inhaler] Montelukast [Singulair] 10 mg PO QPM #14 tablet 11/30/19 Unknown Rx predniSONE [Deltasone] 50 mg PO QDAY #5 tab 11/30/19 Unknown Rx ALBUTEROL NEB's [Proventil 0.083% 2.5 mg IH Q6H PRN #1 box 03/03/20 Unknown Rx NEBS] Albuterol Mdi (or & Nicu Only) 2 puff IH QID PRN #1 inha 03/03/20 Unknown Rx [ProAir HFA Inhaler] Prednisone [predniSONE 10 mg 10 mg PO .TAPER #1 tab.ds.pk 03/03/20 Unknown Rx (6-Day Pack, 21 Tabs)] Prednisone [predniSONE 10 mg 10 mg PO .TAPER #1 tab.ds.pk 07/28/20 Unknown Rx (6-Day Pack, 21 Tabs)] Allergies Allergy/AdvReac Type Severity Reaction Status Date / Time No Known Allergies Allergy Verified 07/28/20 09:32 ED Review of Systems ROS: Stated complaint: ASTHMA Other details as noted in HPI Constitutional: denies: chills, fever Eyes: denies: eye pain, eye discharge, vision change ENT: denies: ear pain, throat pain Respiratory: shortness of breath, wheezing. denies: cough Cardiovascular: denies: chest pain, palpitations Endocrine: no symptoms reported Gastrointestinal: denies: abdominal pain, nausea, diarrhea Genitourinary: denies: urgency, dysuria Musculoskeletal: denies: back pain, joint swelling, arthralgia Skin: denies: rash, lesions Neurological: denies: headache, weakness, paresthesias Psychiatric: denies: anxiety, depression Hematological/Lymphatic: denies: easy bleeding, easy bruising ED Past Medical Hx - Past Medical History Previous Medical History?: Yes Hx Diabetes: Yes (no meds) Hx Asthma: Yes - Social History Smoking Status: Never Smoker Substance Use Type: None - Medications Home Medications: Home Medications Medication Instructions Recorded Confirmed Last Taken Type Amoxicillin/K Clav Tab [Augmentin 1 tab PO Q12HR 10 Days #20 tab 03/17/18 Unknown Rx 875 mg] Cetirizine HCl [ZyrTEC] 10 mg PO QDAY 14 Days #14 capsule 03/17/18 Unknown Rx Fluticasone [Flonase] 1 spray NS QDAY 14 Days #1 bottle 03/17/18 Unknown Rx methylPREDNISolone [Medrol Dose 4 mg PO QAM 6 Days #1 pack 03/17/18 Unknown Rx Adam] Albuterol Sulfate [Ventolin HFA] 2 puff IH Q4H PRN #1 hfa.aer.ad 12/29/18 Unknown Rx Amoxicillin 500 mg PO BID #20 capsule 12/29/18 Unknown Rx Cetirizine HCl [ZyrTEC] 10 mg PO DAILY #30 capsule 12/29/18 Unknown Rx Fluticasone [Flonase] 1 spray NS QDAY #1 bottle 12/29/18 Unknown Rx predniSONE [Deltasone] 20 mg PO DAILY #5 tablet 12/29/18 Unknown Rx Budesonide/Formoterol Fumarate 2 inh INHALATION BID #1 hfa.aer.ad 01/04/19 Unknown Rx [Symbicort 160-4.5 Mcg Inhaler] Montelukast [Singulair] 10 mg PO QPM #14 tablet 11/30/19 Unknown Rx predniSONE [Deltasone] 50 mg PO QDAY #5 tab 11/30/19 Unknown Rx ALBUTEROL NEB's [Proventil 0.083% 2.5 mg IH Q6H PRN #1 box 03/03/20 Unknown Rx NEBS] Albuterol Mdi (or & Nicu Only) 2 puff IH QID PRN #1 inha 03/03/20 Unknown Rx [ProAir HFA Inhaler] Prednisone [predniSONE 10 mg 10 mg PO .TAPER #1 tab.ds.pk 03/03/20 Unknown Rx (6-Day Pack, 21 Tabs)] Prednisone [predniSONE 10 mg 10 mg PO .TAPER #1 tab.ds.pk 07/28/20 Unknown Rx (6-Day Pack, 21 Tabs)] ED Physical Exam - General Limitations: No Limitations General appearance: alert, in no apparent distress - Head Head exam: Present: atraumatic, normocephalic - Eye Eye exam: Present: normal appearance - Neck Neck exam: Present: normal inspection, full ROM - Respiratory Respiratory exam: Present: wheezes. Absent: respiratory distress, rales, rhonchi, stridor, chest wall tenderness, accessory muscle use, decreased breath sounds, prolonged expiratory - Cardiovascular Cardiovascular Exam: Present: regular rate, normal rhythm, normal heart sounds. Absent: bradycardia, tachycardia, irregular rhythm, systolic murmur, diastolic murmur, rubs, gallop - Extremities Exam Extremities exam: Present: full ROM - Back Exam Back exam: Present: full ROM - Neurological Exam Neurological exam: Present: alert, oriented X3, normal gait - Psychiatric Psychiatric exam: Present: normal affect, normal mood - Skin Skin exam: Present: warm, dry, intact, normal color. Absent: rash ED Course Vital Signs 08/06/20 08:32 Temperature 97.7 F Pulse Rate 84 Respiratory 18 Rate Blood Pressure 110/65 O2 Sat by Pulse 94 Oximetry - Consultations Consultation #1: 08/06/20 14:20 Patient has been consulted with Dr. Millan about patient history, physical exam, and labs and agreesd for admission. Consultation #2: 08/06/20 14:35 Patient has been consulted with Dr. Varela about patient history, physical exam, and labs/CXR and accepts patient to services. ED Medical Decision Making - Lab Data Result diagrams: 08/06/20 13:15 08/06/20 13:15 - Medical Decision Making This is a 55-year-old male that presents with asthma exacerbation. Patient is stable and was examined by me. Patient received medical treatment in ER which symptoms of wheezing and shortness of breath still continued. At this time patient will be admitted for further evaluation and treatment. At time of admission, the patient does not seem toxic or ill in appearance. No acute signs of distress noted. Patient agrees to admission treatment plan of care. No further questions noted by the patient. This chart is dictated with using [employer] Dictation Program Critical care attestation.: If time is entered above; I have spent that time in minutes in the direct care of this critically ill patient, excluding procedure time. ED Disposition Clinical Impression: Asthma exacerbation Qualifiers: Asthma severity: moderate Asthma persistence: persistent Qualified Code(s): J45.41 - Moderate persistent asthma with (acute) exacerbation Status asthmaticus Qualifiers: Asthma severity: moderate Asthma persistence: persistent Qualified Code(s): J45.42 - Moderate persistent asthma with status asthmaticus Disposition: OP ADMIT IP TO THIS HOSP Is pt being admited?: Yes Condition: Stable Referrals: PRIMARY CARE, [Primary Care Provider] - 3-5 Days
[2020-08-06] MEDS ORDERED: MAGNESIUM SULFATE 2 GM/50 ML BAG IV ONE (11:36)
[2020-08-06] MEDS ORDERED: dexAMETHasone 20 MG/5 ML VIAL IV ONE (11:37)
--- NOTE | 2020-08-06 13:14 | XRay Report ---
XR chest routine 2V INDICATION / CLINICAL INFORMATION: wheezing/sob. COMPARISON: None available. FINDINGS: SUPPORT DEVICES: None. HEART /PULMONARY VASCULATURE: No significant abnormality. LUNGS / PLEURA: No significant pulmonary or pleural abnormality. No pneumothorax. ADDITIONAL FINDINGS: No significant additional findings. IMPRESSION: 1. No acute findings. Signer Name: Reilly Shaver MD Signed: 08/06/2020 1:10 PM Workstation Name: [id number]
[2020-08-06 13:36] LABS: Basophils % (Auto) 0.6 % (0.0-1.8); Eosinophils % (Auto) 0.2 % (0.0-4.3); Hemoglobin 13.8 gm/dl (11.8-15.2); Lymphocytes % (Auto) 18.4 % (13.4-35.0); Mean Corpuscular HGB Conc 34 % (32-34); Mean Corpuscular Volume 83 fl (84-94); Monocytes # (Auto) 0.3 K/mm3 (0.0-0.8); Monocytes % (Auto) 4.8 % (0.0-7.3); Platelet Count 244 K/mm3 (140-440); Red Blood Count 4.97 M/mm3 (3.65-5.03); Red Cell Distribution Width 13.2 % (13.2-15.2)
[2020-08-06 13:42] LABS: BUN/Creatinine Ratio 14; Blood Urea Nitrogen 14 mg/dL (9-20); Calcium 9.1 mg/dL (8.4-10.2); Hemolysis Index 54
[2020-08-06 13:51] LABS: Alanine Aminotransferase 27 units/L (7-56); Albumin 4.6 g/dL (3.9-5)
[2020-08-06 13:55] LABS: INR 0.94 (0.87-1.13)
[2020-08-06 13:56] LABS: Partial Thromboplastin Time 24.1 Sec. (24.2-36.6)
[2020-08-06 14:05] LABS: Bilirubin,Direct < 0.2 mg/dL (0-0.2)
[2020-08-06 16:45] VITALS: BP 118/71
== END 2020-08-06 16:44 | disposition admitted as inpatient to this hospital (09) ==
LOC: ED 08:26
DX: J45.901 Unspecified asthma with (acute) exacerbation (principal); J45.42 Moderate persistent asthma with status asthmaticus; E11.9 Type 2 diabetes mellitus without complications; Z79.899 Other long term (current) drug therapy
CPT/HCPCS: 36415; 71046; 80048; 80076; 82962; 84484; 85025; 85610; 85730; 94640; 96365; 96375; 99284; J1100; J3475

== ENCOUNTER 2020-09-06 12:15 | Emergency (ER) | payer SELFPAY ==
[2020-09-06] MEDS ORDERED: dexAMETHasone 20 MG/5 ML VIAL IM ONE (14:56)
[2020-09-06] MEDS ORDERED: IPRATROPIUM 0.02% NEBU 2.5 ML IH ONE (14:56)
[2020-09-06] MEDS ORDERED: ALBUTEROL 2.5 MG/3 ML NEBU IH ONE (14:56)
--- NOTE | 2020-09-06 14:59 | Emergency Department Report ---
ED Asthma HPI - General Chief Complaint: Adult Asthma Stated Complaint: ASTHMA Time Seen by Provider: 09/06/20 14:55 Source: patient Mode of arrival: Ambulatory Limitations: No Limitations - History of Present Illness Initial Comments: Patient is a 55-year-old male presents emergency room with complaints of an asthma exacerbation that began couple of days ago. He has associated shortness of breath, wheezing, occasional mild dry cough. He denies any productive cough, fever, vomiting, diarrhea, sore throat, ear pain. He states that he takes Symbicort, albuterol inhaler, nebulizer treatments for his asthma. He states that he did 4 treatments yesterday and had one treatment this morning. He denies any sick contacts or recent travel. He has a past medical history of diabetes which he reports is well controlled. No allergies to medications. - Related Data Previous Rx's Medication Instructions Recorded Last Taken Type Amoxicillin/K Clav Tab [Augmentin 1 tab PO Q12HR 10 Days #20 tab 03/17/18 Unknown Rx 875 mg] Cetirizine HCl [ZyrTEC] 10 mg PO QDAY 14 Days #14 capsule 03/17/18 Unknown Rx Fluticasone [Flonase] 1 spray NS QDAY 14 Days #1 bottle 03/17/18 Unknown Rx methylPREDNISolone [Medrol Dose 4 mg PO QAM 6 Days #1 pack 03/17/18 Unknown Rx Adam] Albuterol Sulfate [Ventolin HFA] 2 puff IH Q4H PRN #1 hfa.aer.ad 12/29/18 Unknown Rx Amoxicillin 500 mg PO BID #20 capsule 12/29/18 Unknown Rx Cetirizine HCl [ZyrTEC] 10 mg PO DAILY #30 capsule 12/29/18 Unknown Rx Fluticasone [Flonase] 1 spray NS QDAY #1 bottle 12/29/18 Unknown Rx predniSONE [Deltasone] 20 mg PO DAILY #5 tablet 12/29/18 Unknown Rx Budesonide/Formoterol Fumarate 2 inh INHALATION BID #1 hfa.aer.ad 01/04/19 Unknown Rx [Symbicort 160-4.5 Mcg Inhaler] Montelukast [Singulair] 10 mg PO QPM #14 tablet 11/30/19 Unknown Rx predniSONE [Deltasone] 50 mg PO QDAY #5 tab 11/30/19 Unknown Rx ALBUTEROL NEB's [Proventil 0.083% 2.5 mg IH Q6H PRN #1 box 03/03/20 Unknown Rx NEBS] Albuterol Mdi (or & Nicu Only) 2 puff IH QID PRN #1 inha 03/03/20 Unknown Rx [ProAir HFA Inhaler] Prednisone [predniSONE 10 mg 10 mg PO .TAPER #1 tab.ds.pk 03/03/20 Unknown Rx (6-Day Pack, 21 Tabs)] Prednisone [predniSONE 10 mg 10 mg PO .TAPER #1 tab.ds.pk 07/28/20 Unknown Rx (6-Day Pack, 21 Tabs)] Prednisone [predniSONE 10 mg 10 mg PO .TAPER #1 tab.ds.pk 08/06/20 Unknown Rx (6-Day Pack, 21 Tabs)] Prednisone [predniSONE 10 mg 10 mg PO .TAPER #1 tab.ds.pk 09/06/20 Unknown Rx (6-Day Pack, 21 Tabs)] Allergies Allergy/AdvReac Type Severity Reaction Status Date / Time No Known Allergies Allergy Verified 09/06/20 12:21 ED Review of Systems ROS: Stated complaint: ASTHMA Other details as noted in HPI Comment: All other systems reviewed and negative ED Past Medical Hx - Past Medical History Hx Diabetes: Yes (no meds) Hx Asthma: Yes - Social History Smoking Status: Never Smoker Substance Use Type: None - Medications Home Medications: Home Medications Medication Instructions Recorded Confirmed Last Taken Type Amoxicillin/K Clav Tab [Augmentin 1 tab PO Q12HR 10 Days #20 tab 03/17/18 Unknown Rx 875 mg] Cetirizine HCl [ZyrTEC] 10 mg PO QDAY 14 Days #14 capsule 03/17/18 Unknown Rx Fluticasone [Flonase] 1 spray NS QDAY 14 Days #1 bottle 03/17/18 Unknown Rx methylPREDNISolone [Medrol Dose 4 mg PO QAM 6 Days #1 pack 03/17/18 Unknown Rx Adam] Albuterol Sulfate [Ventolin HFA] 2 puff IH Q4H PRN #1 hfa.aer.ad 12/29/18 Unknown Rx Amoxicillin 500 mg PO BID #20 capsule 12/29/18 Unknown Rx Cetirizine HCl [ZyrTEC] 10 mg PO DAILY #30 capsule 12/29/18 Unknown Rx Fluticasone [Flonase] 1 spray NS QDAY #1 bottle 12/29/18 Unknown Rx predniSONE [Deltasone] 20 mg PO DAILY #5 tablet 12/29/18 Unknown Rx Budesonide/Formoterol Fumarate 2 inh INHALATION BID #1 hfa.aer.ad 01/04/19 Unknown Rx [Symbicort 160-4.5 Mcg Inhaler] Montelukast [Singulair] 10 mg PO QPM #14 tablet 11/30/19 Unknown Rx predniSONE [Deltasone] 50 mg PO QDAY #5 tab 11/30/19 Unknown Rx ALBUTEROL NEB's [Proventil 0.083% 2.5 mg IH Q6H PRN #1 box 03/03/20 Unknown Rx NEBS] Albuterol Mdi (or & Nicu Only) 2 puff IH QID PRN #1 inha 03/03/20 Unknown Rx [ProAir HFA Inhaler] Prednisone [predniSONE 10 mg 10 mg PO .TAPER #1 tab.ds.pk 03/03/20 Unknown Rx (6-Day Pack, 21 Tabs)] Prednisone [predniSONE 10 mg 10 mg PO .TAPER #1 tab.ds.pk 07/28/20 Unknown Rx (6-Day Pack, 21 Tabs)] Prednisone [predniSONE 10 mg 10 mg PO .TAPER #1 tab.ds.pk 08/06/20 Unknown Rx (6-Day Pack, 21 Tabs)] Prednisone [predniSONE 10 mg 10 mg PO .TAPER #1 tab.ds.pk 09/06/20 Unknown Rx (6-Day Pack, 21 Tabs)] ED Physical Exam - General Limitations: No Limitations General appearance: alert, in no apparent distress - Head Head exam: Present: atraumatic, normocephalic - Eye Eye exam: Present: normal appearance - ENT ENT exam: Present: mucous membranes moist - Respiratory Respiratory exam: Present: wheezes (expiratory bilaterally), prolonged expiratory. Absent: respiratory distress, rales, rhonchi, stridor, chest wall tenderness, accessory muscle use - Cardiovascular Cardiovascular Exam: Present: regular rate, normal rhythm, normal heart sounds. Absent: systolic murmur, diastolic murmur, rubs, gallop - Neurological Exam Neurological exam: Present: alert, oriented X3 - Psychiatric Psychiatric exam: Present: normal affect, normal mood - Skin Skin exam: Present: warm, dry, intact ED Course Vital Signs 09/06/20 09/06/20 12:23 17:18 Temperature 97.7 F 97.6 F Pulse Rate 88 76 Respiratory 19 16 Rate Blood Pressure 150/89 Blood Pressure 130/78 [Right] O2 Sat by Pulse 95 97 Oximetry ED Medical Decision Making - Lab Data Vital Signs 09/06/20 09/06/20 12:23 17:18 Temperature 97.7 F 97.6 F Pulse Rate 88 76 Respiratory 19 16 Rate Blood Pressure 150/89 Blood Pressure 130/78 [Right] O2 Sat by Pulse 95 97 Oximetry - Medical Decision Making Patient is a 55-year-old male presents emergency room with complaints of an asthma exacerbation that began couple of days ago. He has associated shortness of breath, wheezing, occasional mild dry cough. He denies any productive cough, fever, vomiting, diarrhea, sore throat, ear pain. He states that he takes Symbicort, albuterol inhaler, nebulizer treatments for his asthma. He states that he did 4 treatments yesterday and had one treatment this morning. He brock es any sick contacts or recent travel. He has a past medical history of diabetes which he reports is well controlled. No allergies to medications. Vitals are stable. On exam patient has expiratory wheezing and prolonged expiratory phase, no respiratory distress or accessory muscle use. Patient given continuous neb treatment and dexamethasone IM. On exam wheezing has improved but still mild wheezing remains. Patient states that he is feeling better and ready to go home. Patient states that he does not need any refills of his home medication. Patient given prescription for prednisone taper. Advised patient Please take medication as prescribed. Please do your treatments every 4 hours as needed for wheezing the next couple days. Follow-up with your primary care doctor for reexamination. Return to emergency room for any new or worsening symptoms. Critical care attestation.: If time is entered above; I have spent that time in minutes in the direct care of this critically ill patient, excluding procedure time. ED Disposition Clinical Impression: Asthma exacerbation Qualifiers: Asthma severity: unspecified severity Asthma persistence: unspecified Qualified Code(s): J45.901 - Unspecified asthma with (acute) exacerbation Disposition: DC-01 TO HOME OR SELFCARE Is pt being admited?: No Does the pt Need Aspirin: No Condition: Stable Instructions: Asthma, Adult Additional Instructions: Please take medication as prescribed. Please do your treatments every 4 hours as needed for wheezing the next couple days. Follow-up with your primary care doctor for reexamination. Return to emergency room for any new or worsening symptoms. Prescriptions: Prednisone [predniSONE 10 mg (6-Day Pack, 21 Tabs)] 10 mg PO .TAPER #1 tab.ds.pk Referrals: PRIMARY CARE, [Primary Care Provider] - 2-3 Days Forms: Work/School Release Form(ED) Time of Disposition: 16:32 Print Language: SET[place]
[2020-09-06 17:19] VITALS: BP 130/78
== END 2020-09-06 17:19 | disposition home or self-care (01) ==
LOC: ED 12:15
DX: J45.901 Unspecified asthma with (acute) exacerbation (principal); E11.9 Type 2 diabetes mellitus without complications; Z79.899 Other long term (current) drug therapy
CPT/HCPCS: 94640; 96372; 99282; J1100

== ENCOUNTER 2020-09-16 12:32 | Emergency (ER) | payer SELFPAY ==
[2020-09-16 12:50] VITALS: BP 139/89
--- NOTE | 2020-09-16 14:00 | Emergency Department Report ---
ED General Adult HPI - General Chief complaint: Headache Stated complaint: BODY ACHE/CHILLS Time Seen by Provider: 09/16/20 13:00 Source: patient Mode of arrival: Ambulatory Limitations: No Limitations - History of Present Illness Initial comments: Patient is a 55-year-old male who presents emergency room with complaints of chills and a mild headache that began 4 days ago. He states that he is also concerned that his blood sugar may also be elevated. pt states that occasionally he has a dry cough but it is not frequent or persistent and no productive sputum. He states that he does not frequently check his blood sugar and is on insulin and Metformin. He denies any fever, nausea, vomiting, diarrhea, body aches, shortness of breath, chest pain, abdominal pain. He also has a past medical history of asthma. He denies any recent travel or sick contacts. He denies any medication allergies. - Related Data Previous Rx's Medication Instructions Recorded Last Taken Type Amoxicillin/K Clav Tab [Augmentin 1 tab PO Q12HR 10 Days #20 tab 03/17/18 Unknown Rx 875 mg] Cetirizine HCl [ZyrTEC] 10 mg PO QDAY 14 Days #14 capsule 03/17/18 Unknown Rx Fluticasone [Flonase] 1 spray NS QDAY 14 Days #1 bottle 03/17/18 Unknown Rx methylPREDNISolone [Medrol Dose 4 mg PO QAM 6 Days #1 pack 03/17/18 Unknown Rx Adam] Albuterol Sulfate [Ventolin HFA] 2 puff IH Q4H PRN #1 hfa.aer.ad 12/29/18 U nknown Rx Amoxicillin 500 mg PO BID #20 capsule 12/29/18 Unknown Rx Cetirizine HCl [ZyrTEC] 10 mg PO DAILY #30 capsule 12/29/18 Unknown Rx Fluticasone [Flonase] 1 spray NS QDAY #1 bottle 12/29/18 Unknown Rx predniSONE [Deltasone] 20 mg PO DAILY #5 tablet 12/29/18 Unknown Rx Budesonide/Formoterol Fumarate 2 inh INHALATION BID #1 hfa.aer.ad 01/04/19 Unknown Rx [Symbicort 160-4.5 Mcg Inhaler] Montelukast [Singulair] 10 mg PO QPM #14 tablet 11/30/19 Unknown Rx predniSONE [Deltasone] 50 mg PO QDAY #5 tab 11/30/19 Unknown Rx ALBUTEROL NEB's [Proventil 0.083% 2.5 mg IH Q6H PRN #1 box 03/03/20 Unknown Rx NEBS] Albuterol Mdi (or & Nicu Only) 2 puff IH QID PRN #1 inha 03/03/20 Unknown Rx [ProAir HFA Inhaler] Prednisone [predniSONE 10 mg 10 mg PO .TAPER #1 tab.ds.pk 03/03/20 Unknown Rx (6-Day Pack, 21 Tabs)] Prednisone [predniSONE 10 mg 10 mg PO .TAPER #1 tab.ds.pk 07/28/20 Unknown Rx (6-Day Pack, 21 Tabs)] Prednisone [predniSONE 10 mg 10 mg PO .TAPER #1 tab.ds.pk 08/06/20 Unknown Rx (6-Day Pack, 21 Tabs)] Prednisone [predniSONE 10 mg 10 mg PO .TAPER #1 tab.ds.pk 09/06/20 Unknown Rx (6-Day Pack, 21 Tabs)] Allergies Allergy/AdvReac Type Severity Reaction Status Date / Time No Known Allergies Allergy Verified 09/06/20 12:21 ED Review of Systems ROS: Stated complaint: BODY ACHE/CHILLS Other details as noted in HPI Comment: All other systems reviewed and negative ED Past Medical Hx - Past Medical History Hx Diabetes: Yes (no meds) Hx Asthma: Yes - Social History Smoking Status: Never Smoker - Medications Home Medications: Home Medications Medication Instructions Recorded Confirmed Last Taken Type Amoxicillin/K Clav Tab [Augmentin 1 tab PO Q12HR 10 Days #20 tab 03/17/18 Unknown Rx 875 mg] Cetirizine HCl [ZyrTEC] 10 mg PO QDAY 14 Days #14 capsule 03/17/18 Unknown Rx Fluticasone [Flonase] 1 spray NS QDAY 14 Days #1 bottle 03/17/18 Unknown Rx methylPREDNISolone [Medrol Dose 4 mg PO QAM 6 Days #1 pack 03/17/18 Unknown Rx Adam] Albuterol Sulfate [Ventolin HFA] 2 puff IH Q4H PRN #1 hfa.aer.ad 12/29/18 Unknown Rx Amoxicillin 500 mg PO BID #20 capsule 12/29/18 Unknown Rx Cetirizine HCl [ZyrTEC] 10 mg PO DAILY #30 capsule 12/29/18 Unknown Rx Fluticasone [Flonase] 1 spray NS QDAY #1 bottle 12/29/18 Unknown Rx predniSONE [Deltasone] 20 mg PO DAILY #5 tablet 12/29/18 Unknown Rx Budesonide/Formoterol Fumarate 2 inh INHALATION BID #1 hfa.aer.ad 01/04/19 Unknown Rx [Symbicort 160-4.5 Mcg Inhaler] Montelukast [Singulair] 10 mg PO QPM #14 tablet 11/30/19 Unknown Rx predniSONE [Deltasone] 50 mg PO QDAY #5 tab 11/30/19 Unknown Rx ALBUTEROL NEB's [Proventil 0.083% 2.5 mg IH Q6H PRN #1 box 03/03/20 Unknown Rx NEBS] Albuterol Mdi (or & Nicu Only) 2 puff IH QID PRN #1 inha 03/03/20 Unknown Rx [ProAir HFA Inhaler] Prednisone [predniSONE 10 mg 10 mg PO .TAPER #1 tab.ds.pk 03/03/20 Unknown Rx (6-Day Pack, 21 Tabs)] Prednisone [predniSONE 10 mg 10 mg PO .TAPER #1 tab.ds.pk 07/28/20 Unknown Rx (6-Day Pack, 21 Tabs)] Prednisone [predniSONE 10 mg 10 mg PO .TAPER #1 tab.ds.pk 08/06/20 Unknown Rx (6-Day Pack, 21 Tabs)] Prednisone [predniSONE 10 mg 10 mg PO .TAPER #1 tab.ds.pk 09/06/20 Unknown Rx (6-Day Pack, 21 Tabs)] ED Physical Exam - General Limitations: No Limitations General appearance: alert, in no apparent distress - Head Head exam: Present: atraumatic, normocephalic - Eye Eye exam: Present: normal appearance - ENT ENT exam: Present: mucous membranes moist - Respiratory Respiratory exam: Present: normal lung sounds bilaterally. Absent: respiratory distress, wheezes, rales, rhonchi, stridor, chest wall tenderness, accessory muscle use, decreased breath sounds, prolonged expiratory - Cardiovascular Cardiovascular Exam: Present: regular rate, normal rhythm, normal heart sounds. Absent: systolic murmur, diastolic murmur, rubs, gallop - Neurological Exam Neurological exam: Present: alert, oriented X3 - Psychiatric Psychiatric exam: Present: normal affect, normal mood - Skin Skin exam: Present: warm, dry, intact ED Course Vital Signs 09/16/20 12:46 Temperature 98.7 F Pulse Rate 106 H Respiratory 18 Rate Blood Pressure 139/89 O2 Sat by Pulse 95 Oximetry ED Medical Decision Making - Lab Data Result diagrams: 09/16/20 14:08 09/16/20 14:08 Lab Results 09/16/20 09/16/20 09/16/20 Range/Units 13:33 14:08 14:08 WBC 8.8 (4.5-11.0) K/mm3 RBC 5.05 H (3.65-5.03) M/mm3 Hgb 14.4 (11.8-15.2) gm/dl Hct 41.6 (35.5-45.6) % MCV 83 L (84-94) fl MCH 29 (28-32) pg MCHC 35 H (32-34) % RDW 13.6 (13.2-15.2) % Plt Count 190 (140-440) K/mm3 Lymph % (Auto) 14.5 (13.4-35.0) % [place] % (Auto) 12.8 H (0.0-7.3) % Eos % (Auto) 0.1 (0.0-4.3) % Baso % (Auto) 0.7 (0.0-1.8) % Lymph # (Auto) 1.3 (1.2-5.4) K/mm3 [place] # (Auto) 1.1 H (0.0-0.8) K/mm3 Eos # (Auto) 0.0 (0.0-0.4) K/mm3 Baso # (Auto) 0.1 (0.0-0.1) K/mm3 Seg Neutrophils % 71.9 H (40.0-70.0) % Seg Neutrophils # 6.3 (1.8-7.7) K/mm3 Sodium 138 (137-145) mmol/L Potassium 4.3 (3.6-5.0) mmol/L Chloride 98.5 (98-107) mmol/L Carbon Dioxide 30 (22-30) mmol/L Anion Gap 14 mmol/L BUN 10 (9-20) mg/dL Creatinine 1.4 H (0.8-1.3) mg/dL Estimated GFR > 60 ml/min BUN/Creatinine Ratio 7 % Glucose 167 H (75-100) mg/dL POC Glucose 183 H (70-105) mg/dL Calcium 9.1 (8.4-10.2) mg/dL Total Bilirubin 0.50 (0.1-1.2) mg/dL AST 37 (5-40) units/L ALT 76 H (7-56) units/L Alkaline Phosphatase 58 (35-129) units/L Total Protein 6.6 (6.3-8.2) g/dL Albumin 4.7 (3.9-5) g/dL Albumin/Globulin Ratio 2.5 % - Medical Decision Making Patient is a 55-year-old male who presents emergency room with complaints of chills and a mild headache that began 4 days ago. He states that he is also concerned that his blood sugar may also be elevated. pt states that occasionally he has a dry cough but it is not frequent or persistent and no productive sputum. He states that he does not frequently check his blood sugar and is on insulin and Metformin. He denies any fever, nausea, vomiting, diarrhea, body aches, shortness of breath, chest pain, abdominal pain. He also has a past medical history of asthma. He denies any recent travel or sick co ntacts. He denies any medication allergies. Initial vitals with mild tachycardia which improved upon auscultation. Labs are stable, blood glucose is 167. Symptoms likely related to viral illness. Patient is presenting with the symptoms during COVID-19 pandemic, discussed COVID-19 with patient, discuss strict return precautions, discussed outpatient testing, discussed self quarantine. Patient has no clinical signs of bacterial pneumonia or bronchitis. He has no hypoxia. He does not meet hospital criteria for COVID-19 admission or for hospital COVID-19 testing. advised pt Please increase your fluid intake over the next several days. May take Tylenol as needed for fever or body aches. May take qilt-bzs-gisltyh cold symptom relief medication such as Mucinex or TheraFlu. Follow-up with a primary care doctor for reexamination. Return to emergency room immediately for any new or worsening symptoms including but not limited to difficulty breathing, shortness of breath, severe chest pain, unable to tolerate by mouth intake, etc. Please self quarantine for 10 days from the onset of your symptoms. Please do not go out in public. If you are around others at home please wear a mask. If you need to cough or sneeze please do so in a napkin and immediately throw it away and immediately wash your hands. Wash your hands frequently. Wipe everything down. Recommend for you to get COVID-19 testing, may have this done at primary care doctor, health department, [facility], etc. Critical care attestation.: If time is entered above; I have spent that time in minutes in the direct care of this critically ill patient, excluding procedure time. ED Disposition Clinical Impression: Chills Headache Qualifiers: Headache type: unspecified Headache chronicity pattern: acute headache Intractability: not intractable Qualified Code(s): R51.9 - Headache, unspecified Disposition: DC- TO HOME OR SELFCARE Is pt being admited?: No Does the pt Need Aspirin: No Condition: Stable Instructions: Viral Illness, Adult Additional Instructions: Please increase your fluid intake over the next several days. May take Tylenol as needed for fever or body aches. May take kdsa-bpn-axasyoa cold symptom relief medication such as Mucinex or TheraFlu. Follow-up with a primary care doctor for reexamination. Return to emergency room immediately for any new or worsening symptoms including but not limited to difficulty breathing, shortness of breath, severe chest pain, unable to tolerate by mouth intake, etc. Please self quarantine for 10 days from the onset of your symptoms. Please do not go out in public. If you are around others at home please wear a mask. If you need to cough or sneeze please do so in a napkin and immediately throw it away and immediately wash your hands. Wash your hands frequently. Wipe everything down. Recommend for you to get COVID-19 testing, may have this done at primary care doctor, health department, [facility], etc. Referrals: CLARENCE LEONG MD [Primary Care Provider] - 2-3 Days CARINA CORONA MD [Staff Physician] - 2-3 Days [facility] [Provider Group] - 2-3 Days [facility], [LAB/CONTRACT] - 2-3 Days Forms: Work/School Release Form(ED) Time of Disposition: 15:37 Print Language: INDONESIAN
[2020-09-16 14:54] LABS: Basophils # (Auto) 0.1 K/mm3 (0.0-0.1); Basophils % (Auto) 0.7 % (0.0-1.8); Eosinophils % (Auto) 0.1 % (0.0-4.3); Hematocrit 41.6 % (35.5-45.6); Hemoglobin 14.4 gm/dl (11.8-15.2); Lymphocytes # (Auto) 1.3 K/mm3 (1.2-5.4); Lymphocytes % (Auto) 14.5 % (13.4-35.0); Mean Corpuscular HGB Conc 35 % (32-34); Mean Corpuscular Volume 83 fl (84-94); Monocytes # (Auto) 1.1 K/mm3 (0.0-0.8); Monocytes % (Auto) 12.8 % (0.0-7.3); Platelet Count 190 K/mm3 (140-440); Red Blood Count 5.05 M/mm3 (3.65-5.03); Red Cell Distribution Width 13.6 % (13.2-15.2)
[2020-09-16 15:18] LABS: Alanine Aminotransferase 76 units/L (7-56); Albumin 4.7 g/dL (3.9-5); BUN/Creatinine Ratio 7; Blood Urea Nitrogen 10 mg/dL (9-20); Calcium 9.1 mg/dL (8.4-10.2); Hemolysis Index 20
== END 2020-09-16 15:59 | disposition home or self-care (01) ==
LOC: ED 12:32
DX: R68.83 Chills (without fever) (principal); R51.9 Headache, unspecified; J45.909 Unspecified asthma, uncomplicated; E11.9 Type 2 diabetes mellitus without complications; Z79.899 Other long term (current) drug therapy
CPT/HCPCS: 36415; 80053; 82962; 85025

== ENCOUNTER 2020-09-26 17:13 | Inpatient (IN) | payer OTHER ==
--- NOTE | 2020-09-26 18:12 | Event Note ---
ED Screening Note ED Screening Note: pt presents for weakness since 09/16/2020 +chills, +fever, +body aches +sob no cough, CP, n/v/d pmhx asthma no allergies to meds was evaluated in ED previously but never went to get outpatient COVID 19 testing This initial assessment/diagnostic orders/clinical plan/treatment(s) is/are subject to change based on patients health status, clinical progression and re- assessment by fellow clinical providers in the ED. Further treatment and workup at subsequent clinical providers discretion. Patient/guardian urged not to elope from the ED as their condition may be serious if not clinically assessed and managed. Initial orders include: labs, CXR
[2020-09-26 18:56] LABS: Basophils % (Auto) 0.6 % (0.0-1.8); Hematocrit 40.9 % (35.5-45.6); Hemoglobin 14.2 gm/dl (11.8-15.2); Lymphocytes # (Auto) 1.3 K/mm3 (1.2-5.4); Lymphocytes % (Auto) 19.1 % (13.4-35.0); Mean Corpuscular HGB Conc 35 % (32-34); Mean Corpuscular Volume 82 fl (84-94); Monocytes # (Auto) 0.6 K/mm3 (0.0-0.8); Monocytes % (Auto) 9.3 % (0.0-7.3); Platelet Count 340 K/mm3 (140-440); Red Blood Count 4.97 M/mm3 (3.65-5.03); Red Cell Distribution Width 13.3 % (13.2-15.2)
--- NOTE | 2020-09-26 19:00 | XRay Report ---
CHEST 2 VIEWS INDICATION / CLINICAL INFORMATION: weakness. COMPARISON: 08/06/2020 FINDINGS: SUPPORT DEVICES: None. HEART / MEDIASTINUM: No significant abnormality. LUNGS / PLEURA: Mild patchy bibasilar airspace disease No pneumothorax. ADDITIONAL FINDINGS: No significant additional findings. IMPRESSION: Mild patchy bibasilar airspace disease is present Signer Name: Yunior Wolff MD FACR Signed: 09/26/2020 6:55 PM Workstation Name: [id number]
[2020-09-26 19:12] LABS: Albumin 3.8 g/dL (3.9-5); Calcium 8.5 mg/dL (8.4-10.2)
[2020-09-26] MEDS ORDERED: cefTRIAXone/NS 1 GM/50 ML 1 GM/50 ML BAG IV ONE (20:53)
[2020-09-26] MEDS ORDERED: AZITHROMYCIN/NS 500 MG/250 ML 500 MG/250 ML BAG IV ONE (20:53)
[2020-09-26] MEDS ORDERED: dexAMETHasone 20 MG/5 ML VIAL IV ONE (20:54)
[2020-09-26] MEDS ORDERED: SODIUM CHLORIDE 0.9% 1000 ML 1,000 ML IV ONE (20:54)
--- NOTE | 2020-09-26 21:13 | Emergency Department Report ---
HPI - General Chief Complaint: Medical Clearance Time Seen by Provider: 09/26/20 18:11 - HPI HPI: Room 39 The patient is a 55-year-old male present with a chief complaint of fatigue. Patient states he came to emergency department because he has not "been feeling well." When asked what is been bothering him the patient states it is difficult to explain. With pointed questions the patient admits to occasional cough that is occasionally productive. Patient admits to fever 103 F. Patient denies shortness of breath. ED Past Medical Hx - Past Medical History Hx Diabetes: Yes (no meds) Hx Asthma: Yes - Surgical History Past Surgical History?: No - Family History Family history: no significant - Social History Smoking Status: Never Smoker Substance Use Type: None (Denies illicit drug use) - Medications Home Medications: Home Medications Medication Instructions Recorded Confirmed Last Taken Type Amoxicillin/K Clav Tab [Augmentin 1 tab PO Q12HR 10 Days #20 tab 03/17/18 Unknown Rx 875 mg] Cetirizine HCl [ZyrTEC] 10 mg PO QDAY 14 Days #14 capsule 03/17/18 Unknown Rx Fluticasone [Flonase] 1 spray NS QDAY 14 Days #1 bottle 03/17/18 Unknown Rx methylPREDNISolone [Medrol Dose 4 mg PO QAM 6 Days #1 pack 03/17/18 Unknown Rx Adam] Albuterol Sulfate [Ventolin HFA] 2 puff IH Q4H PRN #1 hfa.aer.ad 12/29/18 Unknown Rx Amoxicillin 500 mg PO BID #20 capsule 12/29/18 Unknown Rx Cetirizine HCl [ZyrTEC] 10 mg PO DAILY #30 capsule 12/29/18 Unknown Rx Fluticasone [Flonase] 1 spray NS QDAY #1 bottle 12/29/18 Unknown Rx predniSONE [Deltasone] 20 mg PO DAILY #5 tablet 12/29/18 Unknown Rx Budesonide/Formoterol Fumarate 2 inh INHALATION BID #1 hfa.aer.ad 01/04/19 Unknown Rx [Symbicort 160-4.5 Mcg Inhaler] Montelukast [Singulair] 10 mg PO QPM #14 tablet 11/30/19 Unknown Rx predniSONE [Deltasone] 50 mg PO QDAY #5 tab 11/30/19 Unknown Rx ALBUTEROL NEB's [Proventil 0.083% 2.5 mg IH Q6H PRN #1 box 03/03/20 Unknown Rx NEBS] Albuterol Mdi (or & Nicu Only) 2 puff IH QID PRN #1 inha 03/03/20 Unknown Rx [ProAir HFA Inhaler] Prednisone [predniSONE 10 mg 10 mg PO .TAPER #1 tab.ds.pk 03/03/20 Unknown Rx (6-Day Pack, 21 Tabs)] Prednisone [predniSONE 10 mg 10 mg PO .TAPER #1 tab.ds.pk 07/28/20 Unknown Rx (6-Day Pack, 21 Tabs)] Prednisone [predniSONE 10 mg 10 mg PO .TAPER #1 tab.ds.pk 08/06/20 Unknown Rx (6-Day Pack, 21 Tabs)] Prednisone [predniSONE 10 mg 10 mg PO .TAPER #1 tab.ds.pk 09/06/20 Unknown Rx (6-Day Pack, 21 Tabs)] ED Review of Systems ROS: Stated complaint: FEVER; DEHYDRATION; WEAKNESS Other details as noted in HPI Constitutional: fever, malaise Eyes: denies: eye pain ENT: denies: throat pain Respiratory: cough. denies: shortness of breath Cardiovascular: denies: chest pain Endocrine: no symptoms reported Gastrointestinal: denies: abdominal pain Genitourinary: denies: dysuria Musculoskeletal: denies: back pain Neurological: denies: headache Physical Exam - Physical Exam Vital Signs: Vital Signs 09/26/20 17:21 Temperature 98.8 F Pulse Rate 87 Respiratory 18 Rate Blood Pressure 107/69 [Right] O2 Sat by Pulse 91 Oximetry Physical Exam: GENERAL: The patient is well-developed well-nourished male lying on stretcher not appearing to be in acute distress. [] HEENT: Normocephalic. Atraumatic. Extraocular motions are intact. Patient has moist mucous membranes. NECK: Supple. Trachea midline CHEST/LUNGS: Diminished at the bases. Rare occasional expiratory wheeze right base. There is no respiratory distress noted. HEART/CARDIOVASCULAR: Regular. There is no tachycardia. There is no gallop rub or murmur. ABDOMEN: Abdomen is soft, nontender. Patient has normal bowel sounds. There is no abdominal distention. SKIN: There is no rash. There is no edema. There is no diaphoresis. NEURO: The patient is awake, alert, and oriented. The patient is cooperative. The patient has normal speech MUSCULOSKELETAL: There is no evidence of acute injury. ED Course Vital Signs 09/26/20 17:21 Temperature 98.8 F Pulse Rate 87 Respiratory 18 Rate Blood Pressure 107/69 [Right] O2 Sat by Pulse 91 Oximetry ED Medical Decision Making - Lab Data Result diagrams: 09/26/20 18:30 09/26/20 21:11 - Radiology Data Radiology results: report reviewed (Chest x-ray), image reviewed (Chest x-ray) interpreted by me: Chest [id number] patchy infiltrates, no pneumothorax, no foreign body seen CHEST 2 VIEWS INDICATION / CLINICAL INFORMATION: weakness. COMPARISON: 08/06/2020 FINDINGS: SUPPORT DEVICES: None. HEART / MEDIASTINUM: No s ignificant abnormality. LUNGS / PLEURA: Mild patchy bibasilar airspace disease No pneumothorax. ADDITIONAL FINDINGS: No significant additional findings. IMPRESSION: Mild patchy bibasilar airspace disease is present Signer Name: Yunior Wolff MD FACR Signed: 09/26/2020 5:55 PM Workstation Name: [id number] - Differential Diagnosis Pneumonia, COVID-19 Critical care attestation.: If time is entered above; I have spent that time in minutes in the direct care of this critically ill patient, excluding procedure time. ED Disposition Clinical Impression: Bilateral pneumonia, Suspected COVID-19 virus infection, Hypoxia Disposition: OP ADMIT IP TO THIS HOSP Is pt being admited?: Yes Does the pt Need Aspirin: No Condition: Fair Instructions: Bacterial Pneumonia (ED) Referrals: PRIMARY CARE, [Primary Care Provider] - 3-5 Days Time of Disposition: 22:25 (Hospitalist notified (Dr Cotter))
[2020-09-26 22:21] LABS: C-Reactive Protein 9.6 mg/dL (0.00-1.30)
[2020-09-26] MEDS ORDERED: ONDANSETRON 4 MG/2 ML INJ IV PRN (22:57)
[2020-09-26] MEDS ORDERED: MORPHINE 2 MG/1 ML INJ IV PRN (22:57)
[2020-09-26] MEDS ORDERED: ACETAMINOPHEN 325 MG TAB PO PRN (22:57)
[2020-09-26] MEDS ORDERED: MAGNESIUM HYDROXIDE (MOM) ORAL LIQD UDC PO PRN (22:57)
[2020-09-26] MEDS ORDERED: DEXTROSE 50% IN WATER (25GM) 50 ML SYRINGE IV PRN (23:00)
--- NOTE | 2020-09-26 23:06 | History and Physical Report ---
History of Present Illness Date of examination: 09/26/20 Date of admission: 09/26/20 22:23 Chief complaint: Fatigue Cough Fever History of present illness: 55-year-old -[place] male presenting to the emergency room today complaining of fatigue and a general feeling of being unwell. He has also reported some low-grade fever, cough which is occasionally productive. He denies any chest pain or palpitation, no headache or dizziness, no nausea vomiting, no abdominal pain. Patient denies any recent travel and no sick contacts. Denies any contact with anyone with COVID-19. Upon arrival in the emergency room he was slightly hypoxic with O2 saturation of 91% on room air. Work-up in the emergency room today remarkable findings that of bilateral infiltrate on the chest x-ray. Patient has been admitted for pneumonia and will rule out COVID-19. Past History Past Medical History: diabetes, other (Asthma) Past Surgical History: No surgical history Social history: no significant social history Family history: no significant family history Medications and Allergies Allergies Allergy/AdvReac Type Severity Reaction Status Date / Time No Known Allergies Allergy Verified 09/06/20 12:21 Home Medications Medication Instructions Recorded Confirmed Last Taken Type Amoxicillin/K Clav Tab [Augmentin 1 tab PO Q12HR 10 Days #20 tab 03/17/18 Unknown Rx 875 mg] Cetirizine HCl [ZyrTEC] 10 mg PO QDAY 14 Days #14 capsule 03/17/18 Unknown Rx Fluticasone [Flonase] 1 spray NS QDAY 14 Days #1 bottle 03/17/18 Unknown Rx methylPREDNISolone [Medrol Dose 4 mg PO QAM 6 Days #1 pack 03/17/18 Unknown Rx Adam] Albuterol Sulfate [Ventolin HFA] 2 puff IH Q4H PRN #1 hfa.aer.ad 12/29/18 Unknown Rx Amoxicillin 500 mg PO BID #20 capsule 12/29/18 Unknown Rx Cetirizine HCl [ZyrTEC] 10 mg PO DAILY #30 capsule 12/29/18 Unknown Rx Fluticasone [Flonase] 1 spray NS QDAY #1 bottle 12/29/18 Unknown Rx predniSONE [Deltasone] 20 mg PO DAILY #5 tablet 12/29/18 Unknown Rx Budesonide/Formoterol Fumarate 2 inh INHALATION BID #1 hfa.aer.ad 01/04/19 Unknown Rx [Symbicort 160-4.5 Mcg Inhaler] Montelukast [Singulair] 10 mg PO QPM #14 tablet 11/30/19 Unknown Rx predniSONE [Deltasone] 50 mg PO QDAY #5 tab 11/30/19 Unknown Rx ALBUTEROL NEB's [Proventil 0.083% 2.5 mg IH Q6H PRN #1 box 03/03/20 Unknown Rx NEBS] Albuterol Mdi (or & Nicu Only) 2 puff IH QID PRN #1 inha 03/03/20 Unknown Rx [ProAir HFA Inhaler] Prednisone [predniSONE 10 mg 10 mg PO .TAPER #1 tab.ds.pk 03/03/20 Unknown Rx (6-Day Pack, 21 Tabs)] Prednisone [predniSONE 10 mg 10 mg PO .TAPER #1 tab.ds.pk 07/28/20 Unknown Rx (6-Day Pack, 21 Tabs)] Prednisone [predniSONE 10 mg 10 mg PO .TAPER #1 tab.ds.pk 08/06/20 Unknown Rx (6-Day Pack, 21 Tabs)] Prednisone [predniSONE 10 mg 10 mg PO .TAPER #1 tab.ds.pk 09/06/20 Unknown Rx (6-Day Pack, 21 Tabs)] Active Meds: Active Medications Acetaminophen (Acetaminophen 325 Mg Tab) 650 mg PO Q4H PRN PRN Reason: Pain MILD(1-3)/Fever >100.5/[place] Dextrose (Dextrose 50% In Water (25gm) 50 Ml Syringe) 50 ml IV Q30MIN PRN; Protocol PRN Reason: Hypoglycemia Ceftriaxone Sodium (Rocephin/Ns 2 Gm/100 Ml) 2 gm in 100 mls @ 200 mls/hr IV Q24H HI; Protocol Azithromycin (Zithromax/Ns) 500 mg in 250 mls @ 250 mls/hr IV Q24H HI; Protocol Magnesium Hydroxide (Magnesium Hydroxide (Mom) Oral Liqd Udc) 30 ml PO Q4H PRN PRN Reason: Constipation Morphine Sulfate (Morphine 2 Mg/1 Ml Inj) 2 mg IV Q4H PRN PRN Reason: Pain, Moderate (4-6) Ondansetron HCl (Ondansetron 4 Mg/2 Ml Inj) 4 mg IV Q8H PRN PRN Reason: Nausea And Vomiting Sodium Chloride (Sodium Chloride 0.9% 10 Ml Flush Syringe) 10 ml IV BID HI Sodium Chloride (Sodium Chloride 0.9% 10 Ml Flush Syringe) 10 ml IV PRN PRN PRN Reason: LINE FLUSH Review of Systems Constitutional: fever, chills, fatigue Ears, nose, mouth and throat: no nasal congestion, no sore throat Cardiovascular: no chest pain, no palpitations Respiratory: cough, shortness of breath Gastrointestinal: no abdominal pain, no nausea, no vomiting, no diarrhea Genitourinary Male: no dysuria, no hematuria, no flank pain Musculoskeletal: no neck pain, no low back pain Integumentary: no rash, no pruritis Neurological: no headaches, no confusion Psychiatric: no anxiety, no depression Exam - Constitutional Vitals: Temp Pulse Resp BP Pulse Ox 98.4 F 80 19 117/78 91 09/26/20 21:32 09/26/20 21:32 09/26/20 21:32 09/26/20 21:32 09/26/20 21:32 General appearance: Present: no acute distress, well-nourished - EENT Eyes: Present: PERRL, EOM intact. Absent: scleral icterus ENT: hearing intact, clear oral mucosa, dentition normal - Neck Neck: Present: supple, normal ROM - Respiratory Respiratory effort: normal Respiratory: bilateral: diminished - Cardiovascular Rhythm: regular Heart Sounds: Present: S1 & S2. Absent: gallop, systolic murmur, diastolic murmur, rub - Extremities Extremities: no ischemia, pulses intact, pulses symmetrical, No edema, Full ROM Peripheral Pulses: within normal limits - Abdominal General gastrointestinal: Present: soft, non-tender, non-distended, normal bowel sounds. Absent: mass - Integumentary Integumentary: Present: clear, warm, dry. Absent: rash - Musculoskeletal Musculoskeletal: strength equal bilaterally - Psychiatric Psychiatric: appropriate mood/affect, intact judgment & insight, memory intact, cooperative - Neurologic Neurologic: CNII-XII intact, no focal deficits, moves all extremities Results - Labs CBC & Chem 7: 09/26/20 18:30 09/26/20 21:11 Labs: Abnormal lab results 09/26/20 09/26/20 09/26/20 Range/Units 18:30 18:30 21:11 MCV 82 L (84-94) fl MCHC 35 H (32-34) % [place] % (Auto) 9.3 H (0.0-7.3) % Seg Neutrophils % 71.0 H (40.0-70.0) % D-Dimer 439.25 H (0-234) ng/mlDDU Sodium 134 L (137-145) mmol/L Carbon Dioxide 21 L (22-30) mmol/L BUN 24 H (9-20) mg/dL Creatinine 1.6 H (0.8-1.3) mg/dL Glucose 137 H (75-100) mg/dL AST 157 H (5-40) units/L ALT 142 H (7-56) units/L Lactate Dehydrogenase (91-180) units/L C-Reactive Protein (0.00-1.30) mg/dL Total Protein 6.1 L (6.3-8.2) g/dL Albumin 3.8 L (3.9-5) g/dL 09/26/20 Range/Units 21:11 MCV (84-94) fl MCHC (32-34) % [place] % (Auto) (0.0-7.3) % Seg Neutrophils % (40.0-70.0) % D-Dimer (0-234) ng/mlDDU Sodium (137-145) mmol/L Carbon Dioxide (22-30) mmol/L BUN (9-20) mg/dL Creatinine (0.8-1.3) mg/dL Glucose 135 H (75-100) mg/dL AST (5-40) units/L ALT (7-56) units/L Lactate Dehydrogenase 721 H (91-180) units/L C-Reactive Protein 9.60 H (0.00-1.30) mg/dL Total Protein (6.3-8.2) g/dL Albumin (3.9-5) g/dL Assessment and Plan - Patient Problems (1) Bilateral pneumonia Current Visit: Yes Status: Acute Plan to address problem: Patient commenced on empiric IV antibiotics. We await culture results. (2) Suspected COVID-19 virus infection Current Visit: Yes Status: Acute Plan to address problem: Patient placed on isolation precautions. Consult placed to infectious disease for evaluation. Patient also placed on steroids (3) Diabetes mellitus Current Visit: Yes Status: Acute Plan to address problem: Diabetes is diet controlled. We will monitor Accu-Cheks. (4) Hypoxia Current Visit: Yes Status: Acute Plan to address problem: Patient will be placed on oxygen and will keep O2 saturation greater or equal to 94%. (5) DVT prophylaxis Current Visit: Yes Status: Acute Plan to address problem: Patient placed on subcutaneous Lovenox. (6) Full code status Current Visit: Yes Status: Acute Plan to address problem: Patient is a full code.
[2020-09-27 05:44] LABS: Basophils % (Auto) 0.2 % (0.0-1.8); Hematocrit 36.5 % (35.5-45.6); Hemoglobin 12.6 gm/dl (11.8-15.2); Lymphocytes # (Auto) 0.6 K/mm3 (1.2-5.4); Lymphocytes % (Auto) 9.9 % (13.4-35.0); Mean Corpuscular HGB Conc 35 % (32-34); Mean Corpuscular Volume 83 fl (84-94); Monocytes # (Auto) 0.2 K/mm3 (0.0-0.8); Monocytes % (Auto) 3.5 % (0.0-7.3); Platelet Count 349 K/mm3 (140-440); Red Blood Count 4.39 M/mm3 (3.65-5.03); Red Cell Distribution Width 13.2 % (13.2-15.2)
[2020-09-27 05:58] LABS: INR 1.07 (0.87-1.13)
[2020-09-27 06:00] LABS: BUN/Creatinine Ratio 19; Blood Urea Nitrogen 25 mg/dL (9-20); Calcium 7.7 mg/dL (8.4-10.2); Hemolysis Index 1
--- NOTE | 2020-09-27 09:04 | Progress Note ---
Assessment and Plan Assessment and plan: Bilateral pneumonia Cont. IV antibiotics. F/U culture results. Suspected COVID-19 virus infection Patient placed on isolation precautions. Infectious disease consultation Cont. steroids. Diabetes mellitus type 2 Diabetes is diet controlled. We will monitor Accu-Cheks. Acute Hypoxic respiratory failure Cont. oxygen to keep O2 saturation greater or equal to 94%. DVT prophylaxis Patient placed on subcutaneous Lovenox. Full code status Patient is a full code. History Interval history: No new issues overnight. Hospitalist Physical - Constitutional Vitals: Temp Pulse Resp BP Pulse Ox 97.7 F 63 16 123/73 95 09/27/20 05:00 09/27/20 05:00 09/27/20 05:00 09/27/20 05:00 09/27/20 05:00 General appearance: Present: no acute distress, well-nourished - EENT Eyes: Present: PERRL, EOM intact ENT: hearing intact, clear oral mucosa, dentition normal - Neck Neck: Present: supple, normal ROM - Respiratory Respiratory effort: normal Respiratory: bilateral: CTA - Cardiovascular Rhythm: regular Heart Sounds: Present: S1 & S2. Absent: gallop, rub - Extremities Extremities: no ischemia, No edema, Full ROM - Abdominal General gastrointestinal: soft, non-tender, non-distended, normal bowel sounds - Integumentary Integumentary: Present: clear, warm, dry - Neurologic Neurologic: CNII-XII intact, moves all extremities Results - Labs CBC & Chem 7: 09/27/20 04:20 09/27/20 04:20 Labs: Laboratory Last Values WBC 5.9 K/mm3 (4.5-11.0) 09/27/20 04:20 RBC 4.39 M/mm3 (3.65-5.03) 09/27/20 04:20 Hgb 12.6 gm/dl (11.8-15.2) 09/27/20 04:20 Hct 36.5 % (35.5-45.6) 09/27/20 04:20 MCV 83 fl (84-94) L 09/27/20 04:20 MCH 29 pg (28-32) 09/27/20 04:20 MCHC 35 % (32-34) H 09/27/20 04:20 RDW 13.2 % (13.2-15.2) 09/27/20 04:20 Plt Count 349 K/mm3 (140-440) 09/27/20 04:20 Lymph % (Auto) 9.9 % (13.4-35.0) L 09/27/20 04:20 [place] % (Auto) 3.5 % (0.0-7.3) 09/27/20 04:20 Eos % (Auto) 0.0 % (0.0-4.3) 09/27/20 04:20 Baso % (Auto) 0.2 % (0.0-1.8) 09/27/20 04:20 Lymph # (Auto) 0.6 K/mm3 (1.2-5.4) L 09/27/20 04:20 [place] # (Auto) 0.2 K/mm3 (0.0-0.8) 09/27/20 04:20 Eos # (Auto) 0.0 K/mm3 (0.0-0.4) 09/27/20 04:20 Baso # (Auto) 0.0 K/mm3 (0.0-0.1) 09/27/20 04:20 Seg Neutrophils % 86.4 % (40.0-70.0) H 09/27/20 04:20 Seg Neutrophils # 5.1 K/mm3 (1.8-7.7) 09/27/20 04:20 PT 13.7 Sec. (12.2-14.9) 09/27/20 04:20 INR 1.07 (0.87-1.13) 09/27/20 04:20 D-Dimer 439.25 ng/mlDDU (0-234) H 09/26/20 21:11 Sodium 133 mmol/L (137-145) L 09/27/20 04:20 Potassium 5.2 mmol/L (3.6-5.0) H 09/27/20 04:20 Chloride 99.1 mmol/L (98-107) 09/27/20 04:20 Carbon Dioxide 25 mmol/L (22-30) 09/27/20 04:20 Anion Gap 14 mmol/L 09/27/20 04:20 BUN 25 mg/dL (9-20) H 09/27/20 04:20 Creatinine 1.3 mg/dL (0.8-1.3) 09/27/20 04:20 Estimated GFR > 60 ml/min 09/27/20 04:20 BUN/Creatinine Ratio 19 % 09/27/20 04:20 Glucose 284 mg/dL (75-100) H 09/27/20 04:20 POC Glucose 244 mg/dL (70-105) H 09/27/20 07:35 Calcium 7.7 mg/dL (8.4-10.2) L 09/27/20 04:20 Ferritin > 2000.0 ng/mL (30.0-300.0) H 09/26/20 21:11 Total Bilirubin 1.10 mg/dL (0.1-1.2) 09/26/20 18:30 AST 157 units/L (5-40) H 09/26/20 18:30 ALT 142 units/L (7-56) H 09/26/20 18:30 Alkaline Phosphatase 87 units/L (35-129) 09/26/20 18:30 Lactate Dehydrogenase 721 units/L (91-180) H 09/26/20 21:11 C-Reactive Protein 9.60 mg/dL (0.00-1.30) H 09/26/20 21:11 Total Protein 6.1 g/dL (6.3-8.2) L 09/26/20 18:30 Albumin 3.8 g/dL (3.9-5) L 09/26/20 18:30 Albumin/Globulin Ratio 1.7 % 09/26/20 18:30 Microbiology: Microbiology 09/26/20 21:11 Peripheral/Venous Blood Culture - Preliminary Culture in Progress 09/26/20 21:25 Peripheral/Venous Blood Culture - Preliminary Culture in Progress Kyle/IV: Voiding Method Toilet IV Catheter Type [Left Peripheral IV Antecubital] Active Medications - Current Medications Current Medications: Generic Name Dose Route Start Last Admin Trade Name Freq PRN Reason Stop Dose Admin Acetaminophen 650 mg 09/26/20 22:57 Acetaminophen 325 Mg Tab PO Q4H PRN Pain MILD(1-3)/Fever >100.5/[place] Azithromycin 500 mg 09/27/20 10:00 Azithromycin 250 Mg Tab PO 09/30/20 10:01 QDAY HI Dexamethasone 6 mg 09/27/20 10:00 Dexamethasone 4 Mg/Ml Vial IV 10/05/20 10:01 Q24HR HI Dextrose 50 ml 09/26/20 23:00 Dextrose 50% In Water (25gm) 50 Ml Syringe IV Q30MIN PRN Hypoglycemia Protocol Enoxaparin Sodium 40 mg 09/27/20 22:00 Enoxaparin 40 Mg/0.4 Ml Inj SUB-Q QDAY@2200 [facility] Protocol Ceftriaxone Sodium 2 gm in 100 mls @ 200 mls/hr 09/27/20 10:00 Rocephin/Ns 2 Gm/100 Ml IV Q24H [facility] Protocol Magnesium Hydroxide 30 ml 09/26/20 22:57 Magnesium Hydroxide (Mom) Oral Liqd Udc PO Q4H PRN Constipation Morphine Sulfate 2 mg 09/26/20 22:57 Morphine 2 Mg/1 Ml Inj IV Q4H PRN Pain, Moderate (4-6) Ondansetron HCl 4 mg 09/26/20 22:57 Ondansetron 4 Mg/2 Ml Inj IV Q8H PRN Nausea And Vomiting Sodium Chloride 10 ml 09/27/20 10:00 Sodium Chloride 0.9% 10 Ml Flush Syringe IV BID [facility] Sodium Chloride 10 ml 09/26/20 22:57 Sodium Chloride 0.9% 10 Ml Flush Syringe IV PRN PRN LINE FLUSH
[2020-09-27] MEDS ORDERED: cefTRIAXone/NS 2 GM/100 ML 2 GM/100 ML BAG IV SCH (10:00)
[2020-09-27] MEDS ORDERED: AZITHROMYCIN 250 MG TAB PO SCH (10:00)
[2020-09-27] MEDS ORDERED: AZITHROMYCIN/NS 500 MG/250 ML 500 MG/250 ML BAG IV SCH (10:00)
[2020-09-27] MEDS: dexAMETHasone 4 MG/ML VIAL IV SCH (10:24)
--- NOTE | 2020-09-27 15:42 | Consultation ---
History of Present Illness - Reason for Consult Consult date: 09/27/20 COVID Requesting physician: ADOLFO LOPEZ - History of Present Illness 55 years old male without significant medical history, admitted on 09/26/2020 secondary to few days of cough, generalized malaise, fatigue and low-grade fever. Patient denies any contact with COVID-19 patients. On arrival, tempe rature 98.8, HR 87, RR 18, O2 sat 91%, BP 107/69. Initial WBC 6.9. D-dimer 439. Ferritin> 2000. Creatinine 1.6. AST 157 ALT 142. Procalcitonin 0.17. Chest x-ray shows bibasilar airspace disease. Patient currently on 2 L nasal cannula Review of Systems: reviewed ED and H&P notes. Review of system deferred to minimize COVID-19 transmission. Past History Past Medical History: diabetes, other (Asthma) Past Surgical History: No surgical history Social history: no significant social history Family history: no significant family history Medications and Allergies Allergies Allergy/AdvReac Type Severity Reaction Status Date / Time No Known Allergies Allergy Verified 09/06/20 12:21 Home Medications Medication Instructions Recorded Confirmed Last Taken Type Insulin NPH/Regular [Novolin 70/30] 1 unit SUB-Q DAILY 09/27/20 09/27/20 Unknown History Simethicone [Infants' Gas Relief] 40 mg PO PRN 09/27/20 09/27/20 Unknown History Active Meds: Active Medications Acetaminophen (Acetaminophen 325 Mg Tab) 650 mg PO Q4H PRN PRN Reason: Pain MILD(1-3)/Fever >100.5/[place] Azithromycin (Azithromycin 250 Mg Tab) 500 mg PO QDAY [facility] Stop: 09/30/20 10:01 Last Admin: 09/27/20 10:24 Dose: 500 mg Documented by: Dexamethasone (Dexamethasone 4 Mg/Ml Vial) 6 mg IV Q24HR HI Stop: 10/05/20 10:01 Last Admin: 09/27/20 10:24 Dose: 6 mg Documented by: Dextrose (Dextrose 50% In Water (25gm) 50 Ml Syringe) 50 ml IV Q30MIN PRN; Protocol PRN Reason: Hypoglycemia Enoxaparin Sodium (Enoxaparin 40 Mg/0.4 Ml Inj) 40 mg SUB-Q QDAY@2200 [facility]; Protocol Ceftriaxone Sodium (Rocephin/Ns 2 Gm/100 Ml) 2 gm in 100 mls @ 200 mls/hr IV Q24H HI; Protocol Last Admin: 09/27/20 10:24 Dose: 200 mls/hr Documented by: Insulin Human Regular (Insulin Regular, Human 100 Unit/Ml 3ml Vial) 0 unit SUB- Q ACHS HI; Protocol Magnesium Hydroxide (Magnesium Hydroxide (Mom) Oral Liqd Udc) 30 ml PO Q4H PRN PRN Reason: Constipation Ondansetron HCl (Ondansetron 4 Mg/2 Ml Inj) 4 mg IV Q8H PRN PRN Reason: Nausea And Vomiting Sodium Chloride (Sodium Chloride 0.9% 10 Ml Flush Syringe) 10 ml IV BID HI Last Admin: 09/27/20 10:25 Dose: 10 ml Documented by: Sodium Chloride (Sodium Chloride 0.9% 10 Ml Flush Syringe) 10 ml IV PRN PRN PRN Reason: LINE FLUSH Physical Examination - Physical Exam Narrative exam: Physical exam deferred to minimize COVID-19 transmission during pandemic. ER and internal medicine physical examination notes reviewed. - Constitutional Vitals: Vital Signs Temp Pulse Resp BP Pulse Ox 98.2 F 69 22 117/80 95 09/27/20 11:12 09/27/20 11:12 09/27/20 11:12 09/27/20 11:12 09/27/20 11:12 Temperature -Last 24 Hours Temperature 98.2 F Temperature 97.7 F Temperature 98.3 F Temperature 98.4 F Temperature 98.8 F Results - Labs CBC & Chem 7: 09/27/20 04:20 09/27/20 04:20 Labs: Abnormal lab results 09/26/20 09/26/20 09/26/20 Range/Units 18:30 18:30 21:11 MCV 82 L (84-94) fl MCHC 35 H (32-34) % Lymph % (Auto) (13.4-35.0) % [place] % (Auto) 9.3 H (0.0-7.3) % Lymph # (Auto) (1.2-5.4) K/mm3 Seg Neutrophils % 71.0 H (40.0-70.0) % D-Dimer 439.25 H (0-234) ng/mlDDU Sodium 134 L (137-145) mmol/L Potassium (3.6-5.0) mmol/L Carbon Dioxide 21 L (22-30) mmol/L BUN 24 H (9-20) mg/dL Creatinine 1.6 H (0.8-1.3) mg/dL Glucose 137 H (75-100) mg/dL POC Glucose (70-105) mg/dL Calcium (8.4-10.2) mg/dL Ferritin (30.0-300.0) ng/mL AST 157 H (5-40) units/L ALT 142 H (7-56) units/L Lactate Dehydrogenase (91-180) units/L C-Reactive Protein (0.00-1.30) mg/dL Total Protein 6.1 L (6.3-8.2) g/dL Albumin 3.8 L (3.9-5) g/dL Coronavirus (PCR) (Negative) 09/26/20 09/26/20 09/27/20 Range/Units 21:11 21:11 04:20 MCV 83 L (84-94) fl MCHC 35 H (32-34) % Lymph % (Auto) 9.9 L (13.4-35.0) % [place] % (Auto) (0.0-7.3) % Lymph # (Auto) 0.6 L (1.2-5.4) K/mm3 Seg Neutrophils % 86.4 H (40.0-70.0) % D-Dimer (0-234) ng/mlDDU Sodium (137-145) mmol/L Potassium (3.6-5.0) mmol/L Carbon Dioxide (22-30) mmol/L BUN (9-20) mg/dL Creatinine (0.8-1.3) mg/dL Glucose 135 H (75-100) mg/dL POC Glucose (70-105) mg/dL Calcium (8.4-10.2) mg/dL Ferritin > 2000.0 H (30.0-300.0) ng/mL AST (5-40) units/L ALT (7-56) units/L Lactate Dehydrogenase 721 H (91-180) units/L C-Reactive Protein 9.60 H (0.00-1.30) mg/dL Total Protein (6.3-8.2) g/dL Albumin (3.9-5) g/dL Coronavirus (PCR) (Negative) 09/27/20 09/27/20 09/27/20 Range/Units 04:20 07:35 11:10 MCV (84-94) fl MCHC (32-34) % Lymph % (Auto) (13.4-35.0) % [place] % (Auto) (0.0-7.3) % Lymph # (Auto) (1.2-5.4) K/mm3 Seg Neutrophils % (40.0-70.0) % D-Dimer (0-234) ng/mlDDU Sodium 133 L (137-145) mmol/L Potassium 5.2 H (3.6-5.0) mmol/L Carbon Dioxide (22-30) mmol/L BUN 25 H (9-20) mg/dL Creatinine (0.8-1.3) mg/dL Glucose 284 H (75-100) mg/dL POC Glucose 244 H 268 H (70-105) mg/dL Calcium 7.7 L (8.4-10.2) mg/dL Ferritin (30.0-300.0) ng/mL AST (5-40) units/L ALT (7-56) units/L Lactate Dehydrogenase (91-180) units/L C-Reactive Protein (0.00-1.30) mg/dL Total Protein (6.3-8.2) g/dL Albumin (3.9-5) g/dL Coronavirus (PCR) (Negative) 09/27/20 Range/Units Unknown MCV (84-94) fl MCHC (32-34) % Lymph % (Auto) (13.4-35.0) % [place] % (Auto) (0.0-7.3) % Lymph # (Auto) (1.2-5.4) K/mm3 Seg Neutrophils % (40.0-70.0) % D-Dimer (0-234) ng/mlDDU Sodium (137-145) mmol/L Potassium (3.6-5.0) mmol/L Carbon Dioxide (22-30) mmol/L BUN (9-20) mg/dL Creatinine (0.8-1.3) mg/dL Glucose (75-100) mg/dL POC Glucose (70-105) mg/dL Calcium (8.4-10.2) mg/dL Ferritin (30.0-300.0) ng/mL AST (5-40) units/L ALT (7-56) units/L Lactate Dehydrogenase (91-180) units/L C-Reactive Protein (0.00-1.30) mg/dL Total Protein (6.3-8.2) g/dL Albumin (3.9-5) g/dL Coronavirus (PCR) Positive A (Negative) Assessment and Plan Cultures: Blood culture SARS CoV2 PCR positive Assessment: 55 years old male without significant medical history admitted on 09/26/2020 secondary to few days of cough, generalized malaise, fatigue and low- grade fever: #Severe COVID pneumonia: Chest x-ray with bilateral infiltrates. Inflammatory markers elevated. #Acute hypoxemic respiratory failure: O2 sat dropped to 91%, patient currently on 2 L nasal cannula. #Elevated LFTs: from COVID #MILLIE: from COVID, already improving. Recommendations: -Start Dexamethasone 6 mg IV/PO daily for 10 days -Start Remdesivir for 5 days (CrCl>30 mg/mL) -Monitor inflammatory markers - ferritin, Ddimer, CRP, LDH -Monitor liver function test on Remdesivir -Continue anticoagulation per System Protocol -Prone positioning as possible -Stop ceftriaxone and azithromycin, procalcitonin <0.25 ng/mL All laboratory, cultures and imaging were reviewed. Will follow Ami Lopez MD Infectious Diseases [employer] [facility] ([facility] [phone] O [phone]
[2020-09-27] MEDS ORDERED: REMDESIVIR 100 MG VIAL IV ONE (17:00)
[2020-09-27] MEDS ORDERED: REMDESIVIR 200 MG in SODIUM CHLORIDE 0.9% 250ML 250 ML IV ONE (17:00)
[2020-09-27] MEDS: INSULIN REGULAR, HUMAN 100 UNIT/ML 3ML VIAL SUB-Q SCH ×2 (17:35→21:19)
[2020-09-27] MEDS: SODIUM CHLORIDE 0.9% 50 ML IVPB IV SCH (21:14)
[2020-09-27] MEDS: ENOXAPARIN 40 MG/0.4 ML INJ SUB-Q SCH (21:16)
--- NOTE | 2020-09-28 07:39 | Progress Note ---
Assessment and Plan Cultures: Blood culture no growth today SARS CoV2 PCR positive Assessment: 55 years old male without significant medical history admitted on 09/26/2020 secondary to few days of cough, generalized malaise, fatigue and low- grade fever: #Severe COVID pneumonia: Chest x-ray with bilateral infiltrates. Inflammatory markers elevated. #Acute hypoxemic respiratory failure: O2 sat dropped to 91%, remains on 2 L nasal cannula. #Elevated LFTs: from COVID #MILLIE: from COVID, already improving. Recommendations: -Continue dexamethasone 6 mg IV/PO daily for 10 days -Continue remdesivir for 5 days (CrCl>30 mg/mL) D2 of 5 -Monitor inflammatory markers - ferritin, Ddimer, CRP, LDH -ordered today -Monitor liver function test on Remdesivir -Continue anticoagulation per System Protocol -Prone positioning as possible If remarkable clinical improvement, consider 6-minute walking test before discharge All laboratory, cultures and imaging were reviewed. Will follow Ami Lopez MD Infectious Diseases Dining Room Attendant [facility] M [phone] O [phone] Subjective Date of service: 09/28/20 Principal diagnosis: COVID Interval history: Remains on 2 L nasal cannula, no fever, no desaturation, no acute events overnight. Objective - Exam Narrative Exam: Physical exam deferred to minimize COVID-19 transmission during pandemic. ER and internal medicine physical examination notes reviewed. - Constitutional Vitals: Vital Signs Temp Pulse Resp BP Pulse Ox 98.5 F 61 16 123/75 95 09/28/20 04:39 09/28/20 04:39 09/28/20 04:39 09/28/20 04:39 09/28/20 04:39 Temperature -Last 24 Hours Temperature 98.5 F Temperature 98.1 F Temperature 98.3 F Temperature 98.2 F - Labs CBC & Chem 7: 09/27/20 04:20 09/27/20 04:20 Labs: Abnormal lab results 09/27/20 09/27/20 09/27/20 Range/Units 11:10 17:22 21:16 POC Glucose 268 H 260 H 310 H (70-105) mg/dL Coronavirus (PCR) (Negative) 09/27/20 Range/Units Unknown POC Glucose (70-105) mg/dL Coronavirus (PCR) Positive A (Negative)
[2020-09-28] MEDS ORDERED: SODIUM POLYSTYRENE 15 GM/60 ML ORAL LIQD PO NR (09:00)
[2020-09-28] MEDS: INSULIN REGULAR, HUMAN 100 UNIT/ML 3ML VIAL SUB-Q SCH ×4 (09:13→21:43)
[2020-09-28] MEDS: dexAMETHasone 4 MG/ML VIAL IV SCH (09:15)
[2020-09-28] MEDS ORDERED: INSULIN NPH/REGULAR 70/30 INJ SUB-Q SCH (10:00)
[2020-09-28 10:22] LABS: Alanine Aminotransferase 110 units/L (7-56); Albumin 3.3 g/dL (3.9-5); BUN/Creatinine Ratio 21; Bilirubin,Direct 0.3 mg/dL (0-0.2); Blood Urea Nitrogen 27 mg/dL (9-20); Calcium 8.5 mg/dL (8.4-10.2); Hemolysis Index 1
[2020-09-28 10:23] LABS: C-Reactive Protein 5.5 mg/dL (0.00-1.30)
--- NOTE | 2020-09-28 13:12 | Event Note ---
Date: 09/28/20 Consult for COVID positive male on 2 liters NC with good sats. ID following. At this time agree with current recs. As long as oxygen requirement does not go above 4 liters, no current indication for pulm consult. Agree with ID in proning as tolerated during the day and sleep prone at night. Would not give additional IVF's if not necessary. Call if questions.
--- NOTE | 2020-09-28 14:21 | Progress Note ---
Assessment and Plan - Patient Problems (1) Pneumonia due to COVID-19 virus Current Visit: Yes Status: Acute Plan to address problem: -Presented with fatigue, low-grade fever, fever, and occasional productive cough -09/26 CXR shows bilateral pneumonia -09/27 COVID-19 PCR positive -Infectious disease and pulmonology consulted, appreciate recommendations -Contact and droplet isolation -Supplemental oxygenation as needed -Trend inflammatory markers for risk stratification -Steroid therapy for 10 days -09/27 remdesivir initiated by infectious disease, monitor liver function -Prone to sleep as needed -S/p antibiotic therapy given normal procalcitonin level (was stopped by infectious disease disease) -Anticoagulation per COVID-19 protocol -Pulmonary hygiene (2) Acute respiratory failure with hypoxia Current Visit: Yes Status: Acute Plan to address problem: -Patient was slightly hypoxic on presentation -Supplemental oxygen as needed -Pulmonary hygiene -Pulmonology consulted, appreciate recommendations (3) Transaminitis Current Visit: Yes Status: Acute Plan to address problem: -Presented with transaminitis: AST 157, ALT 142, alkaline phos 87 -Secondary to COVID-19 infection -09/27 initiated remdesivir therapy -Monitor LFTs (4) Acute kidney injury due to COVID-19 Current Visit: Yes Status: Acute Plan to address problem: -Presented with a creatinine/BUN of 1.6/24 -09/27 BUN/creatinine 25/1.3 -Likely secondary to COVID-19 infection -Trend BMP -Avoid IV fluids in setting of COVID-19 infection -Consider further work-up if not improving (5) Diabetes mellitus Current Visit: Yes Status: Chronic Plan to address problem: -Accu-Cheks AC at bedtime -SSI -CC diet -Home medications include 1 unit of 70/30 insulin subcu once a day -Patient is on steroid therapy and may likely require long acting insulin (6) DVT prophylaxis Current Visit: Yes Status: Acute Plan to address problem: -Lovenox subcu -SCDs to bilateral lower extremities while in bed History Interval history: 55-year-old -Polish male with diabetes and asthma who presents to the emergency department on 09/26 with fatigue, low-grade fever, fever, and occas ional productive cough was found to be slightly hypoxic on room air and his chest x-ray showed bilateral infiltrates, with elevated D-dimer, hyponatremia, metabolic acidosis, transaminitis, elevated inflammatory markers and acute kidney injury. Patient was admitted to the hospital service as a COVID-19 PUI and pulmonology and infectious disease were consulted. Today the time of examination patient is on supplemental oxygen and reports that he is very tired. Patient does not complain of any shortness of breath, fevers or chills and has a slight cough. He still reports sense of taste and smell are intact. 09/27: No acute events reported overnight, COVID-19 PCR positive Hospitalist Physical - Constitutional Vitals: Temp Pulse Resp BP Pulse Ox 99.7 F H 69 18 123/65 94 09/28/20 11:53 09/28/20 11:53 09/28/20 11:53 09/28/20 11:53 09/28/20 11:53 General appearance: Present: no acute distress, well-nourished - EENT Eyes: Present: PERRL, EOM intact ENT: hearing intact - Neck Neck: Present: normal ROM - Respiratory Respiratory effort: normal - Cardiovascular Rhythm: regular - Extremities Extremities: no ischemia, pulses intact, pulses symmetrical, No edema, normal temperature, normal color, Full ROM Peripheral Pulses: within normal limits - Abdominal General gastrointestinal: soft, non-tender, non-distended, normal bowel sounds - Integumentary Integumentary: Present: clear, warm, dry - Psychiatric Psychiatric: appropriate mood/affect, cooperative - Neurologic Neurologic: CNII-XII intact, no focal deficits, moves all extremities - Allied Health Allied health notes reviewed: nursing Results - Labs CBC & Chem 7: 09/27/20 04:20 09/28/20 09:22 Labs: Laboratory Last Values WBC 5.9 K/mm3 (4.5-11.0) 09/27/20 04:20 RBC 4.39 M/mm3 (3.65-5.03) 09/27/20 04:20 Hgb 12.6 gm/dl (11.8-15.2) 09/27/20 04:20 Hct 36.5 % (35.5-45.6) 09/27/20 04:20 MCV 83 fl (84-94) L 09/27/20 04:20 MCH 29 pg (28-32) 09/27/20 04:20 MCHC 35 % (32-34) H 09/27/20 04:20 RDW 13.2 % (13.2-15.2) 09/27/20 04:20 Plt Count 349 K/mm3 (140-440) 09/27/20 04:20 Lymph % (Auto) 9.9 % (13.4-35.0) L 09/27/20 04:20 [place] % (Auto) 3.5 % (0.0-7.3) 09/27/20 04:20 Eos % (Auto) 0.0 % (0.0-4.3) 09/27/20 04:20 Baso % (Auto) 0.2 % (0.0-1.8) 09/27/20 04:20 Lymph # (Auto) 0.6 K/mm3 (1.2-5.4) L 09/27/20 04:20 [place] # (Auto) 0.2 K/mm3 (0.0-0.8) 09/27/20 04:20 Eos # (Auto) 0.0 K/mm3 (0.0-0.4) 09/27/20 04:20 Baso # (Auto) 0.0 K/mm3 (0.0-0.1) 09/27/20 04:20 Seg Neutrophils % 86.4 % (40.0-70.0) H 09/27/20 04:20 Seg Neutrophils # 5.1 K/mm3 (1.8-7.7) 09/27/20 04:20 PT 13.7 Sec. (12.2-14.9) 09/27/20 04:20 INR 1.07 (0.87-1.13) 09/27/20 04:20 D-Dimer 228.57 ng/mlDDU (0-234) 09/28/20 09:22 Sodium 133 mmol/L (137-145) L 09/28/20 09:22 Potassium 4.6 mmol/L (3.6-5.0) 09/28/20 09:22 Chloride 98.2 mmol/L (98-107) 09/28/20 09:22 Carbon Dioxide 26 mmol/L (22-30) 09/28/20 09:22 Anion Gap 13 mmol/L 09/28/20 09:22 BUN 27 mg/dL (9-20) H 09/28/20 09:22 Creatinine 1.3 mg/dL (0.8-1.3) 09/28/20 09:22 Estimated GFR > 60 ml/min 09/28/20 09:22 BUN/Creatinine Ratio 21 % 09/28/20 09:22 Glucose 242 mg/dL (75-100) H 09/28/20 09:22 POC Glucose 196 mg/dL (70-105) H 09/28/20 11:51 Calcium 8.5 mg/dL (8.4-10.2) 09/28/20 09:22 Ferritin > 2000.0 ng/mL (30.0-300.0) H 09/28/20 09:22 Total Bilirubin 0.60 mg/dL (0.1-1.2) 09/28/20 09:22 Direct Bilirubin 0.3 mg/dL (0-0.2) H 09/28/20 09:22 Indirect Bilirubin 0.3 mg/dL 09/28/20 09:22 AST 65 units/L (5-40) H 09/28/20 09:22 ALT 110 units/L (7-56) H 09/28/20 09:22 Alkaline Phosphatase 74 units/L (35-129) 09/28/20 09:22 Lactate Dehydrogenase 369 units/L (91-180) H 09/28/20 09:22 C-Reactive Protein 5.50 mg/dL (0.00-1.30) H 09/28/20 09:22 Total Protein 6.5 g/dL (6.3-8.2) 09/28/20 09:22 Albumin 3.3 g/dL (3.9-5) L 09/28/20 09:22 Albumin/Globulin Ratio 1.0 % 09/28/20 09:22 Procalcitonin 0.17 ng/mL (<0.15) 09/26/20 21:11 Coronavirus (PCR) Positive (Negative) A 09/27/20 Unknown Microbiology: Microbiology 09/26/20 21:11 Peripheral/Venous Blood Culture - Preliminary NO GROWTH AFTER 24 HOURS 09/26/20 21:25 Peripheral/Venous Blood Culture - Preliminary NO GROWTH AFTER 24 HOURS Kyle/IV: Voiding Method Toilet IV Catheter Type [Left Peripheral IV Antecubital] Active Medications - Current Medications Current Medications: Generic Name Dose Route Start Last Admin Trade Name Freq PRN Reason Stop Dose Admin Acetaminophen 650 mg 09/26/20 22:57 Acetaminophen 325 Mg Tab PO Q4H PRN Pain MILD(1-3)/Fever >100.5/[place] Dexamethasone 6 mg 09/27/20 10:00 09/28/20 09:15 Dexamethasone 4 Mg/Ml Vial IV 10/05/20 10:01 6 mg Q24HR HI Administration Dextrose 50 ml 09/26/20 23:00 Dextrose 50% In Water (25gm) 50 Ml Syringe IV Q30MIN PRN Hypoglycemia Protocol Enoxaparin Sodium 40 mg 09/27/20 22:00 09/27/20 21:16 Enoxaparin 40 Mg/0.4 Ml Inj SUB-Q 40 mg QDAY@2200 HI Administration Protocol REMDESIVIR 100 mg/ Sodium 250 mls @ 500 mls/hr 09/28/20 21:00 Chloride IV 10/01/20 21:29 Q24HR@2100 [facility] Insulin Human Regular 0 unit 09/27/20 16:30 09/28/20 12:22 Insulin Regular, Human 100 Unit/Ml 3ml Vial SUB-Q 2 unit ACHS HI Administration Protocol Magnesium Hydroxide 30 ml 09/26/20 22:57 Magnesium Hydroxide (Mom) Oral Liqd Udc PO Q4H PRN Constipation Ondansetron HCl 4 mg 09/26/20 22:57 Ondansetron 4 Mg/2 Ml Inj IV Q8H PRN Nausea And Vomiting Sodium Chloride 10 ml 09/27/20 10:00 09/28/20 09:15 Sodium Chloride 0.9% 10 Ml Flush Syringe IV 10 ml BID HI Administration Sodium Chloride 10 ml 09/26/20 22:57 Sodium Chloride 0.9% 10 Ml Flush Syringe IV PRN PRN LINE FLUSH Sodium Chloride 50 ml 09/27/20 17:30 09/27/20 21:14 Sodium Chloride 0.9% 50 Ml Ivpb IV 10/01/20 21:01 50 ml Q24HR@2100 [facility] Administration Nutrition/Malnutrition Assess - Dietary Evaluation Nutrition/Malnutrition Findings: Nutrition Notes Start: 09/27/20 12:08 Freq: Status: Active Protocol: Document 09/27/20 12:08 CW (Rec: 09/27/20 12:30 CW [id number]) Co-Sign 09/27/20 12:08 LP Nutrition Notes Need for Assessment generated from: MD Order,Education Initial or Follow up Assessment Current Diagnosis Diabetes Other Pertinent Diagnosis COVID PUI, pneu, hypoxia, asthma Current Diet Consistent CHO Labs/Tests BG 284 Pertinent Medications decadron Height 5 ft 11 in Weight 85.4 kg Usual Body Weight 92.72 kg Bernard Body Weight (kg) 78.18 BMI 26.2 Weight change and time frame 8% wt loss in 1 week Weight Status Overweight Subjective/Other Information MD consult for diet education. Pt reports UBW of 204lbs, 4- 5lb wt loss in one week since getting sick (8% UBW wt loss), decreased appetite since getting sick, and eating 50% breakfast PO. Pt is open to diet education and ONS. Pt denies any chew/swallowing difficulties. Burn Absent Trauma Absent GI Symptoms None Food Allergy No Current % PO Fair (50-74%) Minimum of two criteria No Interpretation of Weight Loss (severe) >2% in 1 week #2 Nutrition Diagnosis Food and nutrition-related knowledge deficit Etiology DM As Evidenced by Signs and Symptoms pt asked questions about carbohydrates #1 Nutrition Diagnosis Inadequate oral intake Etiology COVID-19 (+) As Evidenced by Signs and Symptoms Pt reported eating 50% PO with decreased appetite Is patient on ventilator? No Is Patient Ambulatory and/or Out of Bed Yes REE-([facility]-ambulatory/OOB) [ 4778.969 NUTR.[id number]] Kcal/Kg value to use for calculation 24 Approximate Energy Requirements Using 2049 kcal/Kg Calculation Used for Recommendations Kcal/kg Additional Notes Protein needs are 0.8-1g/kg ABW (68-85g/day) Fluid needs are 1ml/kcal Nutrition Intervention Change Diet Order: Continue Add Supplement/Snack (indicate name/kcal Glucerna Vanilla daily /protein ) Provides kCal: 220 Provides Protein (gm) 10 Teaching Recipient Patient Learning Readiness Good Teaching Methods Discussion,Handout Education Handouts Provided AND CHO counting AND DM Label Reading Tips RD phone number provided Yes Patient aware of follow up options Yes Goal #1 Demonstrate adherence to Consistent CHO diet recommendations Goal #2 Meet at least 80% of protein and energy needs via PO/ONS Anticipated Discharge Needs: Consistent CHO Diet Follow-Up By: 09/29/20 Additional Comments FU for PO/ONS intakes
[2020-09-28] MEDS ORDERED: REMDESIVIR 100 MG in SODIUM CHLORIDE 0.9% 250ML 250 ML IV SCH (21:00)
[2020-09-28] MEDS: SODIUM CHLORIDE 0.9% 50 ML IVPB IV SCH (21:40)
[2020-09-28] MEDS: ENOXAPARIN 40 MG/0.4 ML INJ SUB-Q SCH (21:41)
[2020-09-29] MEDS: dexAMETHasone 4 MG/ML VIAL IV SCH (09:05)
[2020-09-29] MEDS: INSULIN REGULAR, HUMAN 100 UNIT/ML 3ML VIAL SUB-Q SCH ×3 (09:07→17:00)
[2020-09-29] MEDS: INSULIN NPH/REGULAR 70/30 INJ SUB-Q SCH ×2 (09:07→17:00)
--- NOTE | 2020-09-29 09:17 | Progress Note ---
Assessment and Plan Cultures: Blood culture no growth today SARS CoV2 PCR positive Assessment: 55 years old male without significant medical history admitted on 09/26/2020 secondary to few days of cough, generalized malaise, fatigue and low- grade fever: #Severe COVID pneumonia: Chest x-ray with bilateral infiltrates. Inflammatory markers elevated. Ddimer improving, ferritin remains up. #Acute hypoxemic respiratory failure: O2 sat dropped to 91%, remains on 2 L nasal cannula. #Elevated LFTs: from COVID #MILLIE: from COVID, already improving. Recommendations: -Continue dexamethasone 6 mg IV/PO daily for 10 days -Continue remdesivir for 5 days D4 of 5 -Monitor inflammatory markers - ferritin, Ddimer, CRP, LDH -Monitor liver function test on Remdesivir -Continue anticoagulation per System Protocol -Prone positioning as possible If remarkable clinical improvement, consider 6-minute walking test before discharge, does not need to complete 5 days of remdesivir. All laboratory, cultures and imaging were reviewed. Will follow Ami Lopez MD Infectious Diseases Instructional Coordinator [facility] ([facility]) M [phone] O [phone] Subjective Date of service: 09/29/20 Principal diagnosis: COVID Interval history: Remains on 2 L nasal cannula, no fever, sats 92%, no acute events overnight. Objective - Exam Narrative Exam: Physical exam deferred to minimize COVID-19 transmission during pandemic. ER and internal medicine physical examination notes reviewed. - Constitutional Vitals: Vital Signs Temp Pulse Resp BP Pulse Ox 97.4 F L 54 L 16 115/77 92 09/29/20 04:52 09/29/20 04:52 09/29/20 04:52 09/29/20 04:52 09/29/20 04:52 Temperature -Last 24 Hours Temperature 97.4 F Temperature 98.0 F Temperature 99.0 F Temperature 99.7 F - Labs CBC & Chem 7: 09/27/20 04:20 09/28/20 09:22 Labs: Abnormal lab results 09/28/20 09/28/20 09/28/20 Range/Units 09:22 09:22 09:22 Sodium 133 L (137-145) mmol/L BUN 27 H (9-20) mg/dL Glucose 242 H (75-100) mg/dL POC Glucose (70-105) mg/dL Ferritin > 2000.0 H (30.0-300.0) ng/mL Direct Bilirubin 0.3 H (0-0.2) mg/dL AST 65 H (5-40) units/L ALT 110 H (7-56) units/L Lactate Dehydrogenase 369 H (91-180) units/L C-Reactive Protein 5.50 H (0.00-1.30) mg/dL Albumin 3.3 L (3.9-5) g/dL 09/28/20 09/28/20 09/28/20 Range/Units 11:51 16:31 21:23 Sodium (137-145) mmol/L BUN (9-20) mg/dL Glucose (75-100) mg/dL POC Glucose 196 H 205 H 298 H (70-105) mg/dL Ferritin (30.0-300.0) ng/mL Direct Bilirubin (0-0.2) mg/dL AST (5-40) units/L ALT (7-56) units/L Lactate Dehydrogenase (91-180) units/L C-Reactive Protein (0.00-1.30) mg/dL Albumin (3.9-5) g/dL 09/29/20 Range/Units 07:49 Sodium (137-145) mmol/L BUN (9-20) mg/dL Glucose (75-100) mg/dL POC Glucose 248 H (70-105) mg/dL Ferritin (30.0-300.0) ng/mL Direct Bilirubin (0-0.2) mg/dL AST (5-40) units/L ALT (7-56) units/L Lactate Dehydrogenase (91-180) units/L C-Reactive Protein (0.00-1.30) mg/dL Albumin (3.9-5) g/dL
[2020-09-29 13:06] VITALS: BP 122/72
--- NOTE | 2020-09-29 13:41 | Discharge Summary ---
Providers - Providers Date of Admission: 09/26/20 22:23 Date of discharge: 09/29/20 Attending physician: JOSE FOOTE 09/26/20 22:57 Consult to Physician [CONS] Routine Comment: Consulting Provider: KEIKO FERRER Physician Instructions: Reason For Exam: Pneumonia R/O COVID 19 09/26/20 23:00 Consult to Dietitian/Nutrition [CONS] Routine Physician Instructions: Reason For Exam: Reason for Consult: Diet education 09/26/20 23:01 Consult to Physician [CONS] Routine Comment: Consulting Provider: BHAVNA HERBERT Physician Instructions: Reason For Exam: Pneumonia R/O COVID 19 Primary care physician: [employer] BU[employer]ER TOBACCO Hospitalization Condition: Good Hospital course: 55-year-old -[place] male with diabetes and asthma who presents to the emergency department on 09/26 with fatigue, low-grade fever, fever, and occasional productive cough was found to be slightly hypoxic on room air and his chest x-ray showed bilateral infiltrates, with elevated D-dimer, hyponatremia, metabolic acidosis, transaminitis, elevated inflammatory markers and acute kidney injury. Patient was admitted to the hospital service as a COVID-19 PUI and pulmonology and infectious disease were consulted. On 09/27 his COVID-19 PCR resulted as positive. Assessment and Plan - Patient Problems (1) Pneumonia due to COVID-19 virus Current Visit: Yes Status: Acute Plan to address problem: -Presented with fatigue, low-grade fever, fever, and occasional productive cough -09/26 CXR shows bilateral pneumonia -09/27 COVID-19 PCR positive -Infectious disease and pulmonology consulted, appreciate recommendations -Continue contact and droplet isolation -Supplemental oxygenation as needed -Continue steroid therapy and discharge to complete your 10-day course -S/p 09/27 through 09/28 due to severe -Prone to sleep as needed -S/p antibiotic therapy given normal procalcitonin level (was stopped by infectious disease disease) -Continue pulmonary hygiene (2) Acute respiratory failure with hypoxia Current Visit: Yes Status: Acute Plan to address problem: -Patient was slightly hypoxic on presentation -Supplemental oxygen as needed -Pulmonary hygiene -Pulmonology consulted, appreciate recommendations (3) Transaminitis Current Visit: Yes Status: Acute Plan to address problem: -Presented with transaminitis: AST 157, ALT 142, alkaline phos 87 -Secondary to COVID-19 infection -09/27-09/28 remdesivir -Discharge LFTs: AST 65, ALT 110, alk phos 74 (4) Acute kidney injury due to COVID-19 Current Visit: Yes Status: Resolved Plan to address problem: -Presented with a creatinine/BUN of 1.6/24 -09/27 BUN/creatinine 25/1.3 -Likely secondary to COVID-19 infection -Discharge creatinine/BUN 1.3 (5) Diabetes mellitus Current Visit: Yes Status: Chronic Plan to address problem: -Accu-Cheks per primary care physician instructions -Continue home antidiabetic regimen -Continue carb controlled diet Disposition: - TO HOME OR SELFCARE Time spent for discharge: 35 Core Measure Documentation - Palliative Care Palliative Care/ Comfort Measures: Not Applicable - Core Measures Any of the following diagnoses?: none Exam - Constitutional Vitals: Temp Pulse Resp BP Pulse Ox 98 F 56 L 16 122/72 90 09/29/20 13:04 09/29/20 13:04 09/29/20 13:04 09/29/20 13:04 09/29/20 10:00 General appearance: Present: no acute distress - EENT Eyes: Present: PERRL, EOM intact ENT: hearing intact, clear oral mucosa, dentition normal - Neck Neck: Present: normal ROM - Respiratory Respiratory effort: normal - Cardiovascular Rhythm: regular - Extremities Extremities: no ischemia, pulses intact, pulses symmetrical, No edema, normal temperature, normal color, Full ROM Peripheral Pulses: within normal limits - Abdominal General gastrointestinal: Present: soft, non-tender, non-distended, normal bowel sounds - Integumentary Integumentary: Present: clear, warm, dry - Musculoskeletal Musculoskeletal: strength equal bilaterally - Psychiatric Psychiatric: cooperative - Neurologic Neurologic: CNII-XII intact, no focal deficits, moves all extremities - Allied Health Allied health notes reviewed: nursing Plan Activity: advance as tolerated Diet: diabetic Special Instructions: record blood sugar diary, smoking cessation Additional Instructions: Present to nearest emergency department contact your primary care physician if you experience worsening symptoms. Follow the guidelines set forth by the CDC for COVID-19 and contained in the booklet that the RN will provide you. Follow-up with your primary care physician within 1 to 2 weeks of discharge. Follow up with: PRIMARY DANG, [Primary Care Provider] - 3-5 Days Prescriptions: dexAMETHasone [Decadron] 6 mg PO DAILY #6 tablet
[2020-09-30] MEDS ORDERED: DEXAMETHASONE 4 MG TAB PO SCH (10:00)
== END 2020-09-29 17:10 | disposition home or self-care (01) | DRG 177 ==
LOC: ED 17:13 → 3A 22:23
PROVIDERS: ADMIT Internal Medicine Geriatric Medicine; ATTEND Hospitalist
PROC: XW033E5 Introduction of Remdesivir Anti-infective into Peripheral Vein, Percutaneous Approach, New Technology Group 5 (ICD-10-PCS; principal; 2020-09-26)
DX: U07.1 COVID-19 (principal); J96.01 Acute respiratory failure with hypoxia; J12.82 Pneumonia due to coronavirus disease 2019; N17.9 Acute kidney failure, unspecified; E11.9 Type 2 diabetes mellitus without complications; Z79.51 Long term (current) use of inhaled steroids; Z79.4 Long term (current) use of insulin
CPT/HCPCS: 36415; 71046; 80048; 80053; 80076; 82728; 82947; 82962; 83615; 84145; 85025; 85379; 85610; 86140; 87040; 96365; 96367; 96375; G0378; J0456; J0696; J1100; J1650; J1815; J7030; U0003

== ENCOUNTER 2021-01-09 17:29 | Emergency (ER) | payer SELFPAY ==
[2021-01-09 18:49] VITALS: BP 146/88
== END 2021-01-09 20:32 | disposition left against medical advice (07) ==
LOC: ED 17:29
DX: J45.909 Unspecified asthma, uncomplicated (principal); Z53.21 Procedure and treatment not carried out due to patient leaving prior to being seen by health care provider

== ENCOUNTER 2021-01-20 21:29 | Emergency (ER) | payer SELFPAY ==
[2021-01-20] MEDS ORDERED: ALBUTEROL 2.5 MG/3 ML NEBU IH ONE ×2 (21:42→22:24)
[2021-01-20] MEDS ORDERED: IPRATROPIUM 0.02% NEBU 2.5 ML IH ONE ×2 (22:25→22:52)
[2021-01-20 23:06] VITALS: BP 174/100
--- NOTE | 2021-01-20 23:34 | XRay Report ---
CHEST 2 VIEWS INDICATION / CLINICAL INFORMATION: cough and wheezing.. COMPARISON: 2 views of the chest from 09/26/2020. FINDINGS: SUPPORT DEVICES: None. HEART / MEDIASTINUM: No significant abnormality. LUNGS / PLEURA: Clear lungs. No significant pleural effusion. No pneumothorax. ADDITIONAL FINDINGS: No significant additional findings. IMPRESSION: 1. No acute abnormality of the chest. Signer Name: Livan Cabrera MD Signed: 01/20/2021 11:30 PM Workstation Name: [id number]
== END 2021-01-21 07:40 | disposition left against medical advice (07) ==
LOC: ED 21:29
DX: J45.909 Unspecified asthma, uncomplicated (principal); Z53.21 Procedure and treatment not carried out due to patient leaving prior to being seen by health care provider
CPT/HCPCS: 71046; 94644

== ENCOUNTER 2021-04-18 16:52 | Emergency (ER) | payer SELFPAY ==
--- NOTE | 2021-04-18 19:33 | Event Note ---
ED Screening Note ED Screening Note: epigastric abd pain that began yesterday N/V - three episodes of vomiting no diarrhea BM yesterday, states difficulty having a BM no fever no urinary symptoms PMHx DM, asthma no allergies to meds no past abdominal surgical hx non smoker non drinker no drug use This initial assessment/diagnostic orders/clinical plan/treatment(s) is/are subject to change based on patients health status, clinical progression and re- assessment by fellow clinical providers in the ED. Further treatment and workup at subsequent clinical providers discretion. Patient/guardian urged not to elope from the ED as their condition may be serious if not clinically assessed and managed. Initial orders include: labs, ekg
[2021-04-18 19:54] LABS: Bacteria,Urine 1+ /HPF (Negative); Bilirubin,Urine NEG (Negative); Blood,Urine NEG (Negative); Color,Urine Yellow (Yellow); Hyaline Casts,Urine 1 /LPF; Mucus,Urine FEW /HPF; Protein,Urine <15 mg/dL mg/dL (Negative); Urobilinogen,Urine < 2.0 mg/dL (<2.0); WBC,Urine < 1.0 /HPF (0.0-6.0)
[2021-04-18 20:03] LABS: Basophils % (Auto) 0.4 % (0.0-1.8); Eosinophils % (Auto) 0.1 % (0.0-4.3); Hematocrit 42.2 % (35.5-45.6); Hemoglobin 14.8 gm/dl (11.8-15.2); Lymphocytes # (Auto) 1.8 K/mm3 (1.2-5.4); Lymphocytes % (Auto) 17.7 % (13.4-35.0); Mean Corpuscular HGB Conc 35 % (32-34); Mean Corpuscular Volume 82 fl (84-94); Monocytes # (Auto) 0.9 K/mm3 (0.0-0.8); Monocytes % (Auto) 8.6 % (0.0-7.3); Platelet Count 218 K/mm3 (140-440); Red Blood Count 5.16 M/mm3 (3.65-5.03); Red Cell Distribution Width 13.7 % (13.2-15.2)
[2021-04-18 20:19] LABS: Alanine Aminotransferase 19 units/L (7-56); Albumin 4.8 g/dL (3.9-5); BUN/Creatinine Ratio 12; Blood Urea Nitrogen 13 mg/dL (9-20); Calcium 9.7 mg/dL (8.4-10.2); Hemolysis Index 4
[2021-04-19] MEDS ORDERED: LIDOCAINE VISCOUS 2% 15 ML ORAL LIQD PO ONE (00:38)
[2021-04-19] MEDS ORDERED: diphenhydrAMINE 25 MG/10 ML ORAL LIQUID PO ONE (00:38)
[2021-04-19] MEDS ORDERED: ALUM-MAG HYDROXIDE-SIMETHICONE 200-200-20MG/5ML ORAL LIQD 30 ML PO STA (00:38)
--- NOTE | 2021-04-19 01:23 | Emergency Department Report ---
ED Abdominal Pain HPI - General Chief Complaint: Abdominal Pain Stated Complaint: ABD PAIN Time Seen by Provider: 04/18/21 19:32 Source: patient Mode of arrival: Ambulatory Limitations: No Limitations - History of Present Illness MD Complaint: abdominal pain -: days(s) (2) Location: epigastric Radiation: none Migration to: no migration Severity: moderate Quality: aching, dull Consistency: constant Improves With: nothing Worsens With: movement (Palpation) Associated Symptoms: nausea. denies: constipation, dysuria, melena, anorexia, syncope - Related Data Home Medications Medication Instructions Recorded Confirmed Last Taken Insulin NPH/Regular [NovoLIN 70/30] 1 unit SUB-Q DAILY 09/27/20 09/27/20 Unknown Simethicone [Infants' Gas Relief] 40 mg PO PRN 09/27/20 09/27/20 Unknown Previous Rx's Medication Instructions Recorded Last Taken Type Acetaminophen [Acetaminophen TAB] 650 mg PO Q4H PRN tablet 09/29/20 Unknown Rx dexAMETHasone [Decadron] 6 mg PO DAILY #6 tablet 09/29/20 Unknown Rx Hyoscyamine Subl [Levsin Sl 0.125 0.125 mg SL Q6HR PRN #20 tab 04/19/21 Unknown Rx TAB] Omeprazole 40 mg PO DAILY #30 capsule. 04/19/21 Unknown Rx Allergies Allergy/AdvReac Type Severity Reaction Status Date / Time No Known Allergies Allergy Verified 04/18/21 18:05 ED Review of Systems ROS: Stated complaint: ABD PAIN Other details as noted in HPI Comment: All other systems reviewed and negative ED Past Medical Hx - Past Medical History Hx Diabetes: Yes Hx Asthma: Yes - Social History Smoking Status: Never Smoker Substance Use Type: None - Medications Home Medications: Home Medications Medication Instructions Recorded Confirmed Last Taken Type Insulin NPH/Regular [NovoLIN 70/30] 1 unit SUB-Q DAILY 09/27/20 09/27/20 Unknown History Simethicone [Infants' Gas Relief] 40 mg PO PRN 09/27/20 09/27/20 Unknown History Acetaminophen [Acetaminophen TAB] 650 mg PO Q4H PRN tablet 09/29/20 Unknown Rx dexAMETHasone [Decadron] 6 mg PO DAILY #6 tablet 09/29/20 Unknown Rx Hyoscyamine Subl [Levsin Sl 0.125 0.125 mg SL Q6HR PRN #20 tab 04/19/21 Unknown Rx TAB] Omeprazole 40 mg PO DAILY #30 capsule. 04/19/21 Unknown Rx ED Physical Exam - General Limitations: No Limitations General appearance: alert, in no apparent distress - Head Head exam: Present: atraumatic, normocephalic - Eye Eye exam: Present: normal appearance, PERRL - ENT ENT exam: Present: mucous membranes moist - Neck Neck exam: Present: normal inspection - Respiratory Respiratory exam: Present: normal lung sounds bilaterally. Absent: respiratory distress - Cardiovascular Cardiovascular Exam: Present: regular rate, normal rhythm. Absent: systolic murmur, diastolic murmur, rubs, gallop - GI/Abdominal GI/Abdominal exam: Present: soft, normal bowel sounds - Rectal Rectal exam: Present: deferred - Extremities Exam Extremities exam: Present: normal inspection - Back Exam Back exam: Present: normal inspection - Neurological Exam Neurological exam: Present: alert, oriented X3 - Psychiatric Psychiatric exam: Present: normal affect, normal mood - Skin Skin exam: Present: warm, dry, intact, normal color. Absent: rash ED Medical Decision Making - Lab Data Result diagrams: 04/18/21 19:43 04/18/21 19:43 - Medical Decision Making This patient presents with abdominal pain of unclear etiology. Their evaluation has not identified a emergent etiology for the abdominal pain. Specifically, given the very benign exam, normal laboratory studies, and lack of significant risk factors, I have a very low suspicion for appendicitis, ischemic bowel, bowel perforation, or any other life threatening disease. I have discussed with the patient the level of uncertainty with undifferentiated abdominal pain and clearly explained the need to follow-up as noted on the discharge instructions, or return to the Emergency Department immediately if the pain worsens, develops fever, persistent and uncontrollable vomiting, or for any new symptoms or concerns. I discussed with the patient that this presentation today for abdominal pain could represent a significant risk for an acute abdominal process. Although the tests in the ED were essentially normal, there is still a possibility of a process such as appendicitis, diverticulitis, cholecystitis, ulcer, early bowel obstruction, mesenteric ischemia, kidney stone, or even kidney infection which could subsequently cause disability or . The patient understands that they must return within 24 hours for a recheck or see their physician within 24 hours for re-exam due to the possibility of significant surgical or medical process. Critical care attestation.: If time is entered above; I have spent that time in minutes in the direct care of this critically ill patient, excluding procedure time. ED Disposition Clinical Impression: Abdominal pain Disposition: DC-01 TO HOME OR SELFCARE Is pt being admited?: No Does the pt Need Aspirin: No Condition: Stable Instructions: Abdominal Pain, Adult, [id number], Pain Without a Known Cause Prescriptions: Hyoscyamine Subl [Levsin Sl 0.125 TAB] 0.125 mg SL Q6HR PRN #20 tab PRN Reason: abdominal pain Omeprazole 40 mg PO DAILY #30 capsule. Referrals: PRIMARY CARE, [Primary Care Provider] - 3-5 Days [facility] [Provider Group] - 3-5 Days
--- NOTE | 2021-04-20 09:14 | Electrocardiograph Report ---
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
== END 2021-04-19 01:00 | disposition home or self-care (01) ==
LOC: ED 16:52
DX: R10.13 Epigastric pain (principal); E11.9 Type 2 diabetes mellitus without complications; J45.909 Unspecified asthma, uncomplicated; Z79.899 Other long term (current) drug therapy
CPT/HCPCS: 36415; 80053; 81001; 83690; 84484; 85025; 93005; 99283; Q0163

== ENCOUNTER 2022-04-07 08:37 | Emergency (ER) | payer SELFPAY ==
[2022-04-07 09:05] VITALS: BP 143/97
[2022-04-07] MEDS ORDERED: IPRATROPIUM/ALBUTEROL SULFATE 3 ML AMPUL.NEB IH ONE ×2 (09:14→09:17)
== END 2022-04-07 18:55 | disposition left against medical advice (07) ==
LOC: ED 08:37
DX: R06.02 Shortness of breath (principal); R07.9 Chest pain, unspecified; Z53.21 Procedure and treatment not carried out due to patient leaving prior to being seen by health care provider
CPT/HCPCS: 94644